=== PATIENT | male | born 1990 | race African-American/Black ===

== ENCOUNTER 2019-01-18 23:26 | Inpatient (IN) | payer OTHER ==
[2019-01-19 01:24] VITALS: BMI 22.5
[2019-01-19] MEDS ORDERED: Ondansetron PF 4 MG/2 ML Vial IVP PRN (02:17)
[2019-01-19] MEDS ORDERED: Ondansetron ODT 4 MG TAB SL PRN (02:17)
[2019-01-19] MEDS ORDERED: Acetaminophen 325 MG TAB PO PRN (02:17)
[2019-01-19] MEDS ORDERED: Lactated Ringer's 1,000 ML IV SCH (02:30)
[2019-01-19] MEDS ORDERED: Vancomycin HCl 1 GM in Premix Bag 1 BAG IVPB SCH (02:30)
[2019-01-19] MEDS: Piperacillin/Tazobactam 3.375 GM in Sodium Chloride 0.9% 100 ML IVPB SCH ×2 (02:52→09:22)
--- NOTE | 2019-01-19 11:00 | HP ---
HISTORY OF PRESENT ILLNESS: Mr. Maryellen Olivo is a 29-year-old male with multiple skin lesions, probably hidradenitis type problems. He has them over his chest, axilla, neck, arms, thighs. He has seen Dermatology in the past. He states he does have Medicaid. He had left axillary abscesses drained, Nu Gauze placed and has a dressing over his right upper back. He has mild drainage from his right axilla, chronic. He has drainage from other lesions over his chest, torso, thighs chronically. He has been admitted by the ER, concerned about sepsis. Since being in the hospital, his white count is normal. He has been afebrile. He has been on vancomycin and Zosyn. Plan at this time is to send him home on Cipro and Bactrim for 10 days, outpatient Wound Care. Follow up in my office in 2 weeks. I would suggest he see a station captain. He may need full future outpatient drainages, if in different areas. ALLERGIES: NONE. TOBACCO: None. ALCOHOL: None. MEDICATIONS: 1. Omeprazole 20 mg daily. 2. Myorisan 40 mg daily. 3. Prednisone 10 mg daily. PAST SURGICAL HISTORY: I and D of multiple abscesses. PAST MEDICAL HISTORY: 1. Bipolar disorder. 2. Hidradenitis, severe. 3. Multiple skin lesions and abscesses, recurrent. REVIEW OF SYSTEMS: Noncontributory. PHYSICAL EXAMINATION: VITAL SIGNS: Height 5 foot 11 inches, 161 pounds, 22 BMI, temperature 98.2, 83, 94/59. LUNGS: Clear to auscultation. CARDIAC: Rhythm without murmur or gallop. ABDOMEN: Soft and nontender. No mass. EXTREMITIES: Unremarkable. SKIN: Lesions as described, Nu gauze left axilla. Right upper back, multiple small draining sinuses, multiple small draining sinuses in his right axilla, torso, chest, abdomen, thighs. LABORATORY DATA: White count 24, hemoglobin 14.8. ASSESSMENT AND PLAN: 1. Multiple abscesses. 2. Outpatient wound care. 3. Antibiotics. 4. Dermatology appointment. 5. Consider appointment with Infectious Disease as an outpatient. 6. Follow up in my office in 2 to 3 weeks. Job ID: [id number]
[2019-01-19 12:29] VITALS: BP 104/71; TEMP 98.3
[2019-01-19] MEDS ORDERED: Doxycycline 100 MG CAP PO SCH (21:00)
[2019-01-19] MEDS ORDERED: Sulfameth/Trimethoprim DS 800-160mg TAB PO SCH (21:00)
--- NOTE | 2019-01-20 06:55 | DIS ---
DATE OF ADMISSION: 01/19/2019 DATE OF DISCHARGE: 01/19/2019 A 29-year-old male with hidradenitis suppurativa with chronic draining wounds over his right upper back, left axilla chest, abdomen, thighs. He has multiple I and Ds. He was seen in the ER last night and one drain in his left axilla. He has smaller sinuses elsewhere. The patient has been discharged home at this time with followup as an outpatient. He will arrange Dermatology, Infectious Disease followup as an outpatient. He will see me in 2 weeks. Outpatient wound care will be arranged. Job ID: [id number]
[2019-01-20] MEDS ORDERED: ISOTRETINOIN 40 MG PO SCH (09:00)
[2019-01-20] MEDS ORDERED: Potassium Chloride 20 MEQ TAB PO SCH (09:00)
[2019-01-20] MEDS ORDERED: predniSONE 5 MG TAB PO SCH (09:00)
== END 2019-01-19 15:00 | disposition home or self-care (01) | DRG 607 ==
LOC: ERS 23:26 → SURG A 01-19 01:12
PROVIDERS: ADMIT Specialist; ATTEND Specialist
DX: L73.2 Hidradenitis suppurativa (principal)
CPT/HCPCS: J2543; J3370; J7050

== ENCOUNTER 2019-03-01 23:17 | Inpatient (IN) | payer OTHER ==
[2019-03-02 00:49] LABS: Bilirubin Negative (Negative); Blood, Urine Negative (Negative); Clarity CLEAR (Clear); Glucose, Urine (Dipstick) Negative (Negative); Leukocyte Negative (Negative); Nitrite Negative (Negative); Protein, Urine (Dipstick) Negative (Neg-Trace); Urobilinogen 0.2 mg/dL (0.2-1.0)
[2019-03-02 00:58] LABS: Specific Gravity, Urine 1.062 (1.002-1.036)
[2019-03-02 03:39] VITALS: BMI 22.0
[2019-03-02 03:55] LABS: Troponin I Less than 0.010 ng/mL (< 0.028)
[2019-03-02] MEDS ORDERED: Ondansetron ODT 4 MG TAB PO PRN (04:54)
[2019-03-02] MEDS ORDERED: Acetaminophen 500 MG TAB PO PRN (04:54)
[2019-03-02] MEDS ORDERED: Ondansetron PF 4 MG/2 ML Vial IVP PRN (04:54)
[2019-03-02] MEDS ORDERED: Ibuprofen 200 MG TAB PO PRN (04:54)
[2019-03-02] MEDS: Sodium Chloride 0.9% 1,000 ML IV SCH ×2 (05:40→17:04)
[2019-03-02] MEDS: Vancomycin HCl 1.5 GM in Sodium Chloride 0.9% 250 ML 300 ML IVPB SCH ×2 (05:40→17:04)
[2019-03-02] MEDS ORDERED: Piperacillin/Tazobactam 4.5 GM in Sodium Chloride 0.9% 100 ML IVPB SCH (06:00)
--- NOTE | 2019-03-02 06:10 | HP ---
PRIMARY CARE PROVIDER: Larry Siu MD COMPLAINT: Chest pain and cough. HISTORY OF PRESENT ILLNESS: This is a 29-year-old male, who presented to the [facility] [facility] complaining of chest pain and cough while working outside. The patient initially complained of pain in his chest bilaterally occurring approximately 30 minutes prior to his evaluation in the emergency room. The patient did admit to an associated cough that was nonproductive, but no specific fever. Some nausea and palpitations were noted. The patient did not take any specific alleviating medications. The patient was recently admitted to [facility] for hidradenitis suppurativa with incision and drainage as well as IV antibiotic therapy. The patient states he has been compliant with his medication regimen and states no new medications. In the emergency room, the patient underwent general evaluation including CT angiogram of the chest showing equivocal findings without specific evidence of pulmonary embolus. However, the patient was not totally ruled out for pulmonary embolus and received Lovenox in the emergency room. The patient also underwent lower extremity venous Doppler evaluation showing no evidence for deep venous thrombosis. The patient received multitude of medications in the emergency room including Lovenox, aspirin 324 mg, vancomycin 1 g, Zofran, fentanyl, Zosyn, normal saline, and Toradol. The patient did meet criteria for sepsis including lactic acid elevation with tachycardia. Suspected source for skin infections due to history of multiple cutaneous abscesses. The patient was transferred for further evaluation. PAST MEDICAL HISTORY: 1. Hidradenitis suppurativa. 2. Bipolar disorder. PAST SURGICAL HISTORY: Status post incision and drainage of multiple skin abscesses. CURRENT MEDICATIONS: 1. Isotretinoin 10 mg p.o. daily. 2. Omeprazole 20 mg p.o. daily. ALLERGIES: NO KNOWN DRUG ALLERGIES. FAMILY HISTORY: No inheritable disease per patient report. SOCIAL HISTORY: No alcohol or smoking. History of marijuana use. REVIEW OF SYSTEMS: CONSTITUTIONAL: Negative for weight loss or gain, ability to conduct usual activities. SKIN: Negative for rash, itching. EYES: Negative for double vision, pain. ENT/MOUTH: Negative for nose bleeding, neck stiffness, pain, tenderness. CARDIOVASCULAR: Negative for palpitations, dyspnea on exertion, orthopnea. RESPIRATORY: Negative for shortness of breath, wheezing, cough, hemoptysis, fever or night sweats. GASTROINTESTINAL: Negative for poor appetite, abdominal pain, heartburn, nausea, vomiting, constipation, or diarrhea. GENITOURINARY: Negative for urgency, frequency, dysuria, nocturia. MUSCULOSKELETAL: Negative for pain, swelling. NEUROLOGIC/PSYCHIATRIC: Negative for anxiety, depression. ALLERGY/IMMUNOLOGIC: Negative for skin rash, bleeding tendency. Otherwise, negative except as stated per HPI. PHYSICAL EXAMINATION: VITAL SIGNS: On admission. Blood pressure 93/50, pulse 70, respiratory rate 18, temperature 97.4 degrees Fahrenheit, O2 saturation 99% on room air. GENERAL APPEARANCE: This is a 29-year-old male, alert and oriented x3, pleasant, conversant, in no acute distress. HEENT: Pupils are equal, round, reactive to light and accommodation. Extraocular muscles are intact. No scleral icterus. No conjunctival injection. Nares are patent. OP is clear. Teeth in fair repair. NECK: Supple. No cervical adenopathy. No thyromegaly. No carotid bruits. No JVD appreciated. Cervical spine with full active and passive range of motion. No meningeal signs noted. CHEST: Lungs are clear to auscultation bilaterally. CARDIOVASCULAR: S1-S2 without noted murmur, rub, or gallop. ABDOMEN: Rounded, soft, nontender, and nondistended. Bowel sounds are positive in all 4 quadrants. There is no hepatosplenomegaly. No abdominal bruits. No rebound or guarding appreciated. EXTREMITIES: Warm and dry with fair turgor. No clubbing, cyanosis, or asymmetric edema appreciated. Pulses are palpable distally at the dorsalis pedis, posterior tibial, and popliteal arteries bilaterally. Capillary refill is less than 2 seconds. NEUROLOGIC: Cranial nerves 2 through 12 are grossly intact. No focal or lateralizing signs appreciated. SKIN: Shows [id number] keloids to the face, trunk, neck, and back. Postsurgical changes noted in the axillary region. PERTINENT LAB AND X-RAY FINDINGS: EKG dated 03/01/2019, by my interpretation shows sinus tachycardia with heart rates in the 130s. Normal R-wave progression noted in the precordial leads. Normal axis. No acute ST-T wave changes appreciated. CT angiogram of the chest dated 03/01/2019, showed equivocal findings for pulmonary embolus. Bilateral lower extremity venous Doppler study dated 03/01/2019, showed no evidence for DVT. Portable chest x-ray dated 03/01/2019, showed no acute cardiopulmonary process. ASSESSMENT/PLAN: 1. Sepsis secondary to multiple skin abscesses. The patient will be admitted to the telemetry unit. Suspected source is skin lesions. We will continue vancomycin 1 g IV q.12 hours with additional Zosyn 4.5 g IV q.6 hours. Blood and urine cultures pending. Continue sepsis protocol and repeat lactic acid level. 2. Chest pain. Suspect secondary to #1 in addition to sinus tachycardia. No hard evidence to suggest acute pulmonary embolus. We will continue supportive management as outlined in #1. 3. Hidradenitis suppurativa. We will consult wound care services for evaluation. We will continue IV antibiotic therapy as outlined previously. Local skin care. 4. Hypokalemia. Mild. Continue potassium supplementation and repeat potassium level in the a.m. 5. Prophylaxis. SCDs while in bed. Pepcid 20 mg p.o. b.i.d. 6. Code status is full. Surrogate medical decision maker is patient's father. Job ID: [id number]
[2019-03-02 06:14] LABS: Troponin I Less than 0.010 ng/mL (< 0.028)
--- NOTE | 2019-03-02 07:31 | ULT ---
Bilateral lower extremity venous Doppler ultrasound evaluation history is PE and sepsis. Multiple longitudinal and transverse images of the right and left lower extremity venous systems are obtained using multi hertz linear array transducer. Real-time, color flow and spectral waveform Doppl er analysis demonstrates no evidence of acute or old clot seen in the right or left lower extremity v enous systems in the common femoral, superficial femoral, femoral profunda, popliteal, posterior tibi al veins and right and left greater saphenous veins. IMPRESSION: QA I concur with the dictation for virtual radiology.
[2019-03-02] MEDS: HYDROcodone/Acetaminophen 5/325 mg Tablet PO PRN ×2 (08:50→17:04)
[2019-03-02] MEDS: Famotidine 20 MG TAB PO SCH ×2 (08:52→19:55)
[2019-03-02] MEDS: Piperacillin/Tazobactam 4.5 GM in Sodium Chloride 0.9% 100 ML IVPB SCH ×3 (08:53→19:55)
[2019-03-02] MEDS ORDERED: Vancomycin HCl 1 GM in Sodium Chloride 0.9% 250 ML 300 ML IVPB SCH (09:00)
[2019-03-02] MEDS ORDERED: ISOTRETINOIN PO SCH (09:00)
[2019-03-03] MEDS: Sodium Chloride 0.9% 1,000 ML IV SCH ×2 (00:24→22:40)
[2019-03-03] MEDS: Piperacillin/Tazobactam 4.5 GM in Sodium Chloride 0.9% 100 ML IVPB SCH ×3 (02:02→22:41)
[2019-03-03] MEDS: HYDROcodone/Acetaminophen 5/325 mg Tablet PO PRN ×2 (02:05→17:35)
[2019-03-03] MEDS: Vancomycin HCl 1.5 GM in Sodium Chloride 0.9% 250 ML 300 ML IVPB SCH (05:00)
[2019-03-03 05:46] LABS: Anion Gap 9 mmol/L (10-20); BUN (Urea Nitrogen) 5 mg/dL (8.9-20.6); Calc. Creatinine Clearance 148 mL/min (70-130); Calcium 7.9 mg/dL (7.8-10.44); Carbon Dioxide 24 mmol/L (22-29); Chloride 107 mmol/L (98-107); Estimated GFR-MDRD Greater than 90; Glucose 82 mg/dL (70-105); Potassium 3.4 mmol/L (3.5-5.1); Sodium 137 mmol/L (136-145)
[2019-03-03 06:09] LABS: Band 8 % (5-11); Hemoglobin 11.6 g/dL (14.0-18.0); Lymphocytes 21 % (21-51); MDiff Complete? YES; Mean Corpuscular Hemoglobin 26.8 pg (27.0-31.0); Mean Corpuscular Volume 83.8 fL (78.0-98.0); Mean Platelet Volume 6.4 fL (7.4-10.4); Monocytes 9 % (0-10); Neutrophil 62 % (42-75); Platelet Count 354 thou/uL (130-400); RBC Distribution Width 14.8 % (11.5-14.5); Red Blood Cell (RBC) Count 4.32 mill/uL (4.70-6.10); White Blood Cell (WBC) Count 22.2 thou/uL (4.8-10.8)
--- NOTE | 2019-03-03 07:56 | PDOC.PN ---
- Subjective Encounter Start Date: 03/03/19 Encounter Start Time: 08:50 Subjective: Patient now with more diffuse body pain, less focused on chest. No cough -: today. No SOB. No fever. Hasn't gotten out of bed by his report. - Objective Resuscitation Status - Order Detail: 03/02/19 04:47 Resuscitation Status Routine Resuscitation Status: FULL: Full Resuscitation MAR Reviewed: Yes Vital Signs & Weight: Vital Signs (12 hours) Temp Pulse Resp BP Pulse Ox 03/03/19 03:29 98.9 F 74 16 95/54 L 95 03/02/19 20:00 98.1 F 88 16 111/65 97 Weight Admit Weight 158 lb Weight 158 lb I&O: 03/02/19 03/03/19 03/04/19 06:59 06:59 06:59 Intake Total 3224 Output Total 1950 Balance 1274 Result Diagrams: 03/03/19 04:38 03/03/19 04:38 Phys Exam - Physical Examination Constitutional: NAD HEENT: moist MMs Respiratory: no wheezing, no rales, no rhonchi, clear to auscultation bilateral Cardiovascular: RRR, no significant murmur Gastrointestinal: soft, positive bowel sounds diffuse TTP, no masses Musculoskeletal: no edema Neurological: non-focal, moves all 4 limbs Psychiatric: normal affect, A&O x 3 Deviation from normal: Hidradenitis covering bilateral adenexa and center of chest, no visible -: erythema or sig fluid collections Dx/Plan (1) Sepsis Code(s): A41.9 - SEPSIS, UNSPECIFIED ORGANISM Status: Acute Comment: WBC is chronically elevated, no fever, no more tachycardia, lactic acid normalized, suspect URI with dehydration when came in (2) Hidradenitis suppurativa Code(s): L73.2 - HIDRADENITIS SUPPURATIVA Status: Chronic Comment: diffuse, present since 12 years old, followed by specialist at [facility] in [place], no evidence for acute infection on exam of adenexa and chest (3) Chest pain Code(s): R07.9 - CHEST PAIN, UNSPECIFIED Status: Acute Comment: associated with cough, concern for possible PE with elevated D-dimer and tachycardia, CTA equivocal at [place] (4) Hypokalemia Code(s): E87.6 - HYPOKALEMIA Status: Acute Comment: improving, will continue oral supplementation - Plan cont current plan of care, continue antibiotics, out of bed/ambulate, DVT proph w/SCDs repeat CT chest to make sure no PE. If that neg and cultures come -: back neg tomorrow can switch to oral abx and d/c home. PT to get -: moving today. * . - Discharge Day Encounter end time: 10:00
[2019-03-03] MEDS ORDERED: Potassium Chloride 20 MEQ TAB PO SCH (08:00)
[2019-03-03] MEDS: Famotidine 20 MG TAB PO SCH ×2 (10:44→20:30)
--- NOTE | 2019-03-03 10:50 | CT ---
CT ANGIOGRAM OF THE CHEST: COMPARISON: 03/01/2019. CORRELATION: Bilateral lower extremity venous ultrasound with Doppler. HISTORY: Elevated D-dimer. Evaluate for pulmonary artery embolism. TECHNIQUE: CT angiogram of the chest is performed in the axial plane. Three-dimensional reformatted images are submitted for interpretation. FINDINGS: No mediastinal mass, lymphadenopathy, or hematoma. Heart size is within normal limits. No pericardi al effusion. The thoracic aorta and upper abdominal aorta have a normal caliber. No periaortic fat stranding. Visualized upper solid organs are unremarkable. There is evidence of collateral flow in the proximal left upper extremity and left axilla which is of uncertain significance. The etiology appears to be secondary to narrowing of the left subclavian ve in just deep to the medial aspect of the left clavicle. Trachea and central bronchi are patent. No masses or consolidation. Atelectasis and scar in the low er lobes. No pleural effusion or pneumothorax. No lytic or blastic lesions within the osseous structures. Adequate contrast opacification of the pulmonary arterial system to the level of the segmental arteri es. No filling defect to suggest thromboembolism.. IMPRESSION: 1. No evidence of pulmonary artery embolism to the level of the segmental arteries. 2. 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 The re is evidence of extensive left upper extremity and left axillary venous collateral flow. POS: OFF
[2019-03-03] MEDS ORDERED: ISOVUE-370 76%-LOCM 1 ML ONE (15:05)
[2019-03-04] MEDS: HYDROcodone/Acetaminophen 5/325 mg Tablet PO PRN (03:48)
[2019-03-04] MEDS: Famotidine 20 MG TAB PO SCH (08:56)
[2019-03-04 09:01] VITALS: BP 98/58; TEMP 99.5
[2019-03-04 09:33] LABS: #Eosinphils 0.2 thou/uL (0.0-0.7); #Lymphocytes 3.4 thou/uL (1.20-3.40); #Monocytes 1.3 thou/uL (0.11-0.59); #Neutrophils 20.5 thou/uL (1.40-6.50); %Eosinophils 0.8 % (0.0-10.0); %Lymphocytes 13.4 % (21.0-51.0); %Neutrophils 80.8 % (42.0-75.0); Hemoglobin 12.7 g/dL (14.0-18.0); Mean Corpuscular HGB CONC 31.7 g/dL (32.0-36.0); Mean Corpuscular Hemoglobin 26.7 pg (27.0-31.0); Mean Corpuscular Volume 84.3 fL (78.0-98.0); Platelet Count 358 thou/uL (130-400); RBC Distribution Width 14.8 % (11.5-14.5); Red Blood Cell (RBC) Count 4.75 mill/uL (4.70-6.10); White Blood Cell (WBC) Count 25.4 thou/uL (4.8-10.8)
[2019-03-04 09:51] LABS: Anion Gap 13 mmol/L (10-20); BUN (Urea Nitrogen) 4 mg/dL (8.9-20.6); Calc. Creatinine Clearance 154 mL/min (70-130); Calcium 8.5 mg/dL (7.8-10.44); Carbon Dioxide 24 mmol/L (22-29); Chloride 104 mmol/L (98-107); Estimated GFR-MDRD Greater than 90; Glucose 74 mg/dL (70-105); Potassium 3.7 mmol/L (3.5-5.1); Sodium 137 mmol/L (136-145)
--- NOTE | 2019-03-04 14:36 | EKG ---
Test Reason : Blood Pressure : / mmHG Vent. Rate : 072 BPM Atrial Rate : 072 BPM P-R Int : 134 ms QRS Dur : 088 ms QT Int : 396 ms P-R-T Axes : 064 008 010 degrees QTc Int : 433 ms Normal sinus rhythm with sinus arrhythmia Normal ECG Confirmed by KELSEY RUIZ ([id number]), editor school photograph ROMEO LANDA ([id number]) on 03/04/2019 2:35:54 PM Referred By: Confirmed By:KELSEY RUIZ
--- NOTE | 2019-03-05 06:35 | DIS ---
DATE OF ADMISSION: 03/02/2019 DATE OF DISCHARGE: 03/04/2019 PRIMARY CARE PHYSICIAN: Dr. Larry Siu. DISCHARGE DISPOSITION: Home. DISCHARGE DIAGNOSES: 1. Acute febrile illness, no etiology evident, resolved, likely viral illness. 2. Extensive hidradenitis suppurativa. 3. Chest pain, PE and ACS ruled out. DISCHARGE MEDICATIONS: Resume home medications. New medications, tramadol 50 mg daily. Home medications; 1. Omeprazole 20 mg daily. 2. Isotretinoin 10 mg daily. PROCEDURES DONE IN THE HOSPITAL: Lower extremity ultrasound, which is negative for any DVT bilaterally. CT angio of the thorax, which is negative for any pulmonary embolism. HISTORY OF PRESENTING ILLNESS: Mr. Olivo is a 29-year-old male with known history of extensive hidradenitis suppurativa with recent I and D by Dr. Chan in December 2018, who presented to the emergency room with complaints of chest pain and cough. In the ER, he had a CT angio with equivocal findings of pulmonary embolism. Lower extremity Doppler ultrasound done in the ER was negative for DVT. He was given 1 mg/kg dose of Lovenox, aspirin, antibiotic in the form of vancomycin and Zosyn, and was evaluated for further evaluation. He was found to have lactic acid elevation and was tachycardic, meeting the criteria for sepsis as per the HPI. He was found to have multiple skin lesions of hidradenitis suppurativa, some of them with purulent discharge. Please see admission history and physical dictated by Dr. Blair for further details dated 03/02/2019. HOSPITAL COURSE: CT angio was repeated and it was negative for PE. His cultures were obtained and they were negative. His fever and leukocytosis resolved, and he was back to his baseline. Antibiotics were continued, but the patient refused to take them anymore. He refused all oral or IV antibiotics. 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 I have discussed this at length with him, but I could not change his decision. He declined any prescription of oral antibiotics for discharge as well. As he is stable and eager to go home, he will be discharged. PHYSICAL EXAMINATION: He was seen and examined prior to discharge. VITAL SIGNS: Stable. Blood pressure 98/58, respirations 16, saturating 99% on room air, temperature 99.5. SKIN: Multiple scarring from hidradenitis suppurativa all over his body including the face. CHEST: Clear to auscultation bilaterally. HEART: Rate and rhythm regular. I did offer setting up him with wound care clinic at [facility], but he once again declined this as well and reports that his mother is able to take care of the wound. At this point, the patient is rather noncompliant with any medical advice, so he will be discharged. I have encouraged him to follow up with his passenger car cleaning supervisor in [place] as soon as possible. He states that his upcoming appointment is for February. Job ID: [id number]
== END 2019-03-04 14:39 | disposition home or self-care (01) | DRG 872 ==
LOC: ERS 23:17 → 2NO 03-02 00:22
PROVIDERS: ADMIT Family Medicine; ATTEND Family Medicine
PROC: B51D1ZZ Fluoroscopy of Bilateral Lower Extremity Veins using Low Osmolar Contrast (ICD-10-PCS; principal; 2019-03-02)
DX: A41.9 Sepsis, unspecified organism (principal); L73.2 Hidradenitis suppurativa; E87.6 Hypokalemia
CPT/HCPCS: 36415; 71275; 80048; 81003; 83605; 85007; 85025; 85027; 93005; 93970; J2543; J3370; J3490; J7050

== ENCOUNTER 2020-08-08 18:18 | Emergency (ER) | payer OTHER ==
[2020-08-08] MEDS ORDERED: Morphine 4 MG/ML VIAL ONE ×2 (19:14→22:18)
[2020-08-08] MEDS ORDERED: Cefepime 2 GM VIAL ONE (19:14)
[2020-08-08] MEDS ORDERED: Vancomycin 1 GM/200 ML BAG ONE (19:14)
[2020-08-08] MEDS ORDERED: Ketorolac Tromethamine 30 MG/ML VIAL ONE (19:14)
[2020-08-08 19:19] LABS: Hemoglobin 13.5 g/dL (14.0-18.0); Mean Corpuscular HGB CONC 31.6 g/dL (32.0-36.0); Mean Corpuscular Hemoglobin 26.7 pg (27.0-31.0); Mean Corpuscular Volume 84.3 fL (78.0-98.0); Mean Platelet Volume 6.6 fL (7.4-10.4); Platelet Count 403 thou/uL (130-400); RBC Distribution Width 14.7 % (11.5-14.5); Red Blood Cell (RBC) Count 5.08 mill/uL (4.70-6.10); White Blood Cell (WBC) Count 29.9 thou/uL (4.8-10.8)
[2020-08-08 19:38] LABS: Band 10 % (5-11); Lymphocytes 9 % (21-51); MDiff Complete? YES; Monocytes 1 % (0-10); Myelocyte 1 % (0-0); Neutrophil 78 % (42-75); Platelet Morphology Comment Appears Increased; RBC Morphology Normal
[2020-08-08] MEDS ORDERED: methylPREDNISolone Sod Succ/PF 125 MG/2 ML VIAL ONE (19:41)
[2020-08-08 19:46] LABS: ALT (SGPT) 15 U/L (8-55); AST (SGOT) 21 U/L (5-34); Albumin 3.2 g/dL (3.5-5.0); Alkaline Phosphatase 150 U/L (40-110); Anion Gap 16 mmol/L (10-20); BUN (Urea Nitrogen) 6 mg/dL (8.9-20.6); Bilirubin, Total 0.2 mg/dL (0.2-1.2); Calc. Creatinine Clearance 0 mL/min (70-130); Calcium 8.8 mg/dL (7.8-10.44); Carbon Dioxide 20 mmol/L (22-29); Chloride 103 mmol/L (98-107); Estimated GFR-MDRD Greater than 90; Globulin 5.6 g/dL (2.4-3.5); Glucose 139 mg/dL (70-105); Lipase 20 U/L (8-78); Magnesium 1.8 mg/dL (1.6-2.6); Potassium 4.5 mmol/L (3.5-5.1); Protein, Total 8.8 g/dL (6.0-8.3); Sodium 134 mmol/L (136-145)
[2020-08-08 20:41] LABS: Bacteria/HPF None Seen HPF (None Seen); Bilirubin Negative (Negative); Blood, Urine Negative (Negative); Clarity Clear (Clear); Glucose, Urine (Dipstick) Normal (Negative); Ketone, Urine Trace mg/dL (Negative); Leukocyte Negative Leu/uL (Negative); Nitrite Negative (Negative); Protein, Urine (Dipstick) 30 mg/dL (Neg-Trace); RBC/HPF 0-3 HPF (0-3); Specific Gravity, Urine 1.034 (1.002-1.036); Squamous Epithelial 0-3 HPF (0-3); Urobilinogen 6 mg/dL (Less than 2); pH, Urine 6.5 (5.0-9.0)
[2020-08-08 22:04] LABS: Lactic Acid 1.4 mmol/L (0.5-2.2)
--- NOTE | 2020-08-10 12:22 | EKG ---
Test Reason : SEPSIS Blood Pressure : / mmHG Vent. Rate : 100 BPM Atrial Rate : 100 BPM P-R Int : 122 ms QRS Dur : 082 ms QT Int : 354 ms P-R-T Axes : 066 022 037 degrees QTc Int : 456 ms Normal sinus rhythm Normal ECG Confirmed by MANJIT GARCIA ([id number]), medical transcription editor ROMEO LANDA ([id number]) on 08/10/2020 12:22:01 PM Referred By: Confirmed By:MANJIT GARCIA
== END 2020-08-08 23:44 | disposition short-term general hospital (02) ==
LOC: ERS 18:18
DX: A41.9 Sepsis, unspecified organism (principal); L73.2 Hidradenitis suppurativa; L03.314 Cellulitis of groin; F31.9 Bipolar disorder, unspecified; F90.9 Attention-deficit hyperactivity disorder, unspecified type
CPT/HCPCS: 36415; 80053; 81003; 81015; 83605; 83690; 83735; 85025; 87040; 87086; 93005; 96365; 96375; 96376; J0692; J1885; J2270; J2930; J3370

== ENCOUNTER 2020-09-30 19:08 | Inpatient (IN) | payer OTHER ==
[2020-09-30] MEDS ORDERED: Cefepime 2 GM VIAL ONE (20:29)
[2020-09-30 20:30] LABS: Hemoglobin 12.9 g/dL (14.0-18.0); Mean Corpuscular HGB CONC 32.8 g/dL (32.0-36.0); Mean Corpuscular Hemoglobin 27.9 pg (27.0-31.0); Mean Corpuscular Volume 85.1 fL (78.0-98.0); Mean Platelet Volume 6.6 fL (7.4-10.4); Platelet Count 373 thou/uL (130-400); RBC Distribution Width 14.7 % (11.5-14.5); Red Blood Cell (RBC) Count 4.62 mill/uL (4.70-6.10); White Blood Cell (WBC) Count 23.8 thou/uL (4.8-10.8)
[2020-09-30 20:53] LABS: Band 2 % (5-11); Eosinophils 1 % (0-10); Lymphocytes 19 % (21-51); MDiff Complete? YES; Monocytes 4 % (0-10); Neutrophil 73 % (42-75); Reactive Lymphocytes 1 % (0-10)
[2020-09-30 20:54] LABS: ALT (SGPT) 29 U/L (8-55); AST (SGOT) 29 U/L (5-34); Albumin 3.4 g/dL (3.5-5.0); Alkaline Phosphatase 154 U/L (40-110); Anion Gap 15 mmol/L (10-20); BUN (Urea Nitrogen) 8 mg/dL (8.9-20.6); Bilirubin, Total 0.2 mg/dL (0.2-1.2); CRP (Inflammatory) 16.14 mg/dL (= or < 0.5); Calc. Creatinine Clearance 0 mL/min (70-130); Calcium 8.9 mg/dL (7.8-10.44); Carbon Dioxide 26 mmol/L (22-29); Chloride 103 mmol/L (98-107); Globulin 5.1 g/dL (2.4-3.5); Glucose 93 mg/dL (70-105); Potassium 4.1 mmol/L (3.5-5.1); Protein, Total 8.5 g/dL (6.0-8.3); Sodium 140 mmol/L (136-145)
[2020-09-30] MEDS ORDERED: Morphine 4 MG/ML VIAL ONE (20:54)
--- NOTE | 2020-09-30 21:00 | RAD ---
CHEST ONE VIEW: History: Chest pain Comparison: None FINDINGS: There are two ovoid nodules projecting over the right and left lower hemithoraces which has the radio graphic appearance of buttons. These were not seen on the prior exam. There is also a right hilar rad iopacity also likely an extrinsic button as well as over the right upper lobe. No consolidation, pneu mothorax, or effusion. IMPRESSION: 1. No acute intrathoracic abnormality. 2. Likely extrinsic radiopacities projecting over the lower lobes and right upper lobe. POS: HOME
[2020-10-01 01:05] LABS: Bacteria/HPF None Seen HPF (None Seen); Bilirubin Negative (Negative); Blood, Urine Negative (Negative); Clarity Clear (Clear); Glucose, Urine (Dipstick) Normal (Negative); Ketone, Urine Negative (Negative); Leukocyte Negative Leu/uL (Negative); Nitrite Negative (Negative); Protein, Urine (Dipstick) 30 mg/dL (Neg-Trace); RBC/HPF 0-3 HPF (0-3); Specific Gravity, Urine 1.027 (1.002-1.036); Squamous Epithelial None Seen HPF (0-3); WBC/HPF 0-3 HPF (0-3); pH, Urine 7.5 (5.0-9.0)
[2020-10-01] MEDS: Lactated Ringer's 1,000 ML IV SCH ×2 (02:21→09:19)
[2020-10-01 02:51] VITALS: BMI 21.2
[2020-10-01] MEDS ORDERED: HYDROcodone/Acetaminophen 10/325 mg Tablet PO PRN ×2 (04:46→06:30)
[2020-10-01] MEDS ORDERED: Acetaminophen 500 MG TAB PO PRN (06:12)
[2020-10-01] MEDS ORDERED: Naproxen 500 MG TAB PO PRN (06:21)
--- NOTE | 2020-10-01 08:29 | HP ---
REASON FOR ADMISSION: Worsening of his hydradenitis suppurativa. HISTORY OF PRESENT ILLNESS: This is a 30-year-old male patient, who is known to have diffuse hydradenitis suppurativa. He has been feeling more swollen and more pain all over his body, and for that reason, he presented to the emergency room. He states that he has been experiencing worsening of his skin lesions for the past month, but over a week, they became more painful. He reported that he had near syncopal episodes multiple times last week when going from lying to standing. In the ER, his blood pressure was on the low side. He was given IV fluids. His blood pressure improved. His blood work did reveal increased white count. I did review his records and his last admission to the hospital was approximately 2 months ago with similar presentation. During his stay, he was noted to have multiple draining abscesses. He was started on IV vancomycin and Zosyn. He received IV fluids and his blood work did improve. PAST MEDICAL HISTORY: 1. Hidradenitis suppurativa. 2. Bipolar disorder. 3. GERD. PAST SURGICAL HISTORY: Multiple I and D of abscesses. SOCIAL HISTORY: Does not smoke. ALLERGIES: NO KNOWN DRUG ALLERGIES. FAMILY HISTORY: Noncontributory. REVIEW OF SYSTEMS: All systems reviewed except the above mentioned, found to be negative. PHYSICAL EXAMINATION: GENERAL: He is awake, alert, and oriented, does not appear in distress. VITAL SIGNS: His blood pressure is 101/63, his heart rate is 88, temperature is 98.9, and saturating 99% on room air. HEENT: Head is nontraumatic and normocephalic. Pupils are equal and reactive. Extraocular movements are intact. Nonicteric sclerae. Well injected conjunctivae. Oral mucosa normal. Nasal mucosa normal. NECK: Supple. No adenopathy. No murmur. Thyroid is palpable. Trachea is midline. No supraclavicular adenopathy. HEART: S1 and S2 regular. No murmur. No gallops. No friction rubs. No displacement of PMI. LUNGS: Clear to auscultation bilaterally. No wheezes or rhonchi. No crackles. ABDOMEN: Bowel sounds are positive. Nontender abdomen. No hepatosplenomegaly. EXTREMITIES: No lower extremity edema. No cyanosis. SKIN: Reveals diffuse areas of raised and painful subcutaneous tissue around the face, the chest, the armpits, and groin areas. NEUROLOGIC: Cranial nerves 2 through 12 within normal limits. Normal motor function. Normal sensory function. Normal reflexes. LABORATORY DATA: Blood work shows WBC of 29.9, hemoglobin 13.5, platelets of 403. Sodium 140, potassium 4.1, bicarb 26, BUN 8, creatinine 0.95, alkaline phosphatase 154. CRP 16.14. Urinalysis does not show any evidence for infection. ASSESSMENT AND PLAN: This is a 30-year-old male patient, who is presenting with exacerbation of his hidradenitis suppurativa. He responded well to IV fluids. He will be receiving cefepime, vancomycin, and we will ask Wound Care Team to see him. Also, I will consult Infectious Disease. For deep venous thrombosis prophylaxis, he will be on Lovenox and SCDs. He is on [place] for pain control. Job ID: [id number]
[2020-10-01] MEDS ORDERED: Prevnar 13-Val Conj/PF 0.5 ML SYRINGE IM ONE (09:00)
[2020-10-01] MEDS: Aripiprazole 15 MG TAB PO SCH (09:17)
[2020-10-01] MEDS: Vancomycin 1.5 GRAM/300 ML BAG 1.5 GM in Premix Bag 1 BAG IVPB SCH ×3 (09:17→23:45)
[2020-10-01] MEDS: Saccharomyces boulardii 250 MG CAP PO SCH (09:17)
[2020-10-01] MEDS: Cefepime 2 GM in Sodium Chloride 0.9% 100 ML IVPB SCH ×2 (09:18→21:32)
[2020-10-01] MEDS: Enoxaparin Sodium 40 MG/0.4 ML SYRINGE SC SCH (09:19)
[2020-10-01] MEDS: HYDROcodone/Acetaminophen 10/325 mg Tablet PO PRN ×2 (12:23→17:09)
[2020-10-01 14:27] LABS: SARS-CoV-2 MS2 Positive; SARS-CoV-2 N Gene Negative; SARS-CoV-2 S Gene Negative; SARS-CoV-2 by NAA Not Detected (NotDetected); SARS-CoV-2 orf1ab Negative
[2020-10-01 23:28] LABS: Vancomycin, Trough 22.1 ug/mL
[2020-10-02 07:05] LABS: #Basophils 0.1 thou/uL (0.0-0.2); #Eosinphils 0.3 thou/uL (0.0-0.7); #Lymphocytes 3.9 thou/uL (1.20-3.40); #Monocytes 1.3 thou/uL (0.11-0.59); #Neutrophils 20.1 thou/uL (1.40-6.50); %Basophils 0.2 % (0.0-1.0); %Eosinophils 1.1 % (0.0-10.0); %Lymphocytes 15.1 % (21.0-51.0); %Monocytes 5.2 % (0.0-10.0); %Neutrophils 78.4 % (42.0-75.0); Hemoglobin 12.9 g/dL (14.0-18.0); Mean Corpuscular HGB CONC 31.1 g/dL (32.0-36.0); Mean Corpuscular Hemoglobin 26.7 pg (27.0-31.0); Mean Platelet Volume 6.3 fL (7.4-10.4); Platelet Count 381 thou/uL (130-400); RBC Distribution Width 14.7 % (11.5-14.5); Red Blood Cell (RBC) Count 4.83 mill/uL (4.70-6.10); White Blood Cell (WBC) Count 25.7 thou/uL (4.8-10.8)
[2020-10-02 07:21] LABS: Anion Gap 13 mmol/L (10-20); BUN (Urea Nitrogen) 4 mg/dL (8.9-20.6); Calc. Creatinine Clearance 131 mL/min (70-130); Calcium 9.8 mg/dL (7.8-10.44); Carbon Dioxide 30 mmol/L (22-29); Chloride 101 mmol/L (98-107); Glucose 86 mg/dL (70-105); Potassium 5.1 mmol/L (3.5-5.1); Sodium 139 mmol/L (136-145)
[2020-10-02] MEDS: Vancomycin 1.5 GRAM/300 ML BAG 1.5 GM in Premix Bag 1 BAG IVPB SCH (07:41)
[2020-10-02] MEDS: HYDROcodone/Acetaminophen 10/325 mg Tablet PO PRN ×2 (08:54→23:44)
[2020-10-02] MEDS: Aripiprazole 15 MG TAB PO SCH (08:57)
[2020-10-02] MEDS: Saccharomyces boulardii 250 MG CAP PO SCH (08:57)
[2020-10-02] MEDS: Enoxaparin Sodium 40 MG/0.4 ML SYRINGE SC SCH (08:58)
[2020-10-02] MEDS: Cefepime 2 GM in Sodium Chloride 0.9% 100 ML IVPB SCH (08:59)
--- NOTE | 2020-10-02 15:19 | CON ---
DATE OF CONSULTATION: 10/02/2020 REASON FOR CONSULTATION: Exacerbation of hidradenitis suppurativa. HISTORY OF PRESENT ILLNESS: A 30-year-old who has longstanding history of hidradenitis suppurativa and a bipolar disorder and has been treated for many years with various interventions including antimicrobials, Accutane, low-dose corticosteroids, and TNF inhibitors. The patient tried Humira for 1 month and he seems to believe that it has caused him to become irritable and so he stopped taking it and he did notice some improvement in his back in the hospital after being on and off antimicrobials for the past year. He was admitted to [facility] here in town. Review at [facility], there was an admission in 05/2018 when he came in with exacerbation of hidradenitis and sepsis. He went I and D of abscesses in the abdomen, posterior back, and right axilla. He was given vancomycin and Zosyn. Dermatology evaluated the patient and felt that he would not benefit from Accutane and contraindicated corticosteroids. He was transitioned to oral clindamycin and rifampin and the next admission was in 03/2019 with the same history of exacerbation. He was given IV antimicrobial therapy and then transitioned to oral minocycline for some reason. It is stated that he was given a prescription of Accutane, although Dermatology in [place] recommended against that option for management. He was discharged on corticosteroids and antimicrobial therapy and Accutane. The last admission was recently on 08/27/2020, and again came with a diagnosis of severe hidradenitis suppurativa, acne conglobata and acne fulminans. He did have a punch biopsy. Specimen demonstrated dermal fibrosis with chronic inflammatory infiltrate. Numerous plasma cells are sort of nonspecific. Stain for infectious pathogens was negative. There is a note from 09/19 from a resident of Dermatology, probably from [facility] in [place]. The note was reviewed. Basically, diagnosis of acne conglobata/hidradenitis suppurativa with scarring, several inflamed nodules, but improved since antimicrobial treatment and recent course of prednisone. Discussions were entertained with the patient regarding treatment options including Humira, Accutane, and recommendation was in favor of Humira given his severe disease and the fact that the other options would not lead to a good outcome. He comes right back to [facility] and seems to be against the idea of starting Humira. He really never gave a good trial of Humira and he had only tried for a month and apparently had some altercation with his brother or other family members and he blames the Humira for it. He does have a diagnosis of schizophrenia/bipolar disorder and he may be making spurious associations between Humira and his behavioral psychological reactions, which might be more related to his underlying diagnosis than the TNF inhibitor. Currently, he is awake, appears in no distress except for the pain associated with the skin lesions. Denies any headaches. No visual symptoms, sore throat, odynophagia, dysphagia, or vomiting. No chest pain other than the skin associated pain. No abdominal pain. No genitourinary symptoms. Not a lot of activity in the groin area. Most of the activities in the upper chest and axilla and back. PAST MEDICAL HISTORY: 1. Hidradenitis suppurativa/acne conglobata with various multiple interventions in the past including antimicrobial therapy, low-dose corticosteroids, Accutane, and Humira. 2. History of hypertension. SOCIAL HISTORY: Lives in [place] by himself next to his family's home. Smokes 3 to 4 cigarettes per day. He is disabled. ALLERGIES: NONE. MEDICATION LIST: At the moment, he is on: 1. Abilify. 2. Cefepime. 3. Enoxaparin. 4. Naproxen. 5. Vancomycin. PHYSICAL EXAMINATION: VITAL SIGNS: T-max 99.1, blood pressure 108/68, pulse 86, respirations 18, and O2 saturation 99. SKIN: Widespread areas of scar tissue formation and keloid formation and then some other areas particularly in the upper chest associated with active nodular acne conglobata and areas of hidradenitis in the axilla, so most of the activity is localized to the upper chest area. HEENT: Ocular movements conjugate. Sclerae white. Oral cavity normal. Numerous teeth in place in fairly decent shape. NECK: Supple. LUNGS: Symmetric. Clear breath sounds. HEART: S1 and S2. Regular rate. No S3, S4, or murmurs. ABDOMEN: Soft, not distended or tender. No ascites. No bladder distention. EXTREMITIES: No joint inflammatory activity. Moves extremities equally with limitations imposed by skin lesions. NEUROLOGIC: Cognitive function appears to be intact. LABORATORY DATA: White cell count was 23,000, now is 25; hemoglobin 12.9; and platelets 381 with 78% neutrophils. Creatinine 0.82. Liver profile, alkaline phosphatase 154, albumin 3.4. CRP 16. Urinalysis was fairly unremarkable. A LAURA-CoV2 PCR not detected. There is a chest x-ray 2 days ago, which showed nothing abnormal. ASSESSMENT: 1. Hidradenitis suppurative/acne conglobata with various treatments in the past. 2. Exacerbation of the above with the recent admission to [facility] in [facility]. DISCUSSION: The commercial specialist recommended transition the patient to Humira in the outpatient setting after control of the acute inflammatory process with antimicrobials and other forms of tumor necrosis factor inhibition, such as infliximab or Remicade would be options for management as well. The patient seems to be pretty resistant to the idea of giving a good trial of Humira and so I would probably consider Remicade instead. The patient's perception of risk with the most effective treatment for his condition is hindering his improvement. I think that should be addressed 1st maybe with help from Psychiatry. For example, he states that if he takes Humira with Abilify, then he will have an increase in his irritability and lead to conflict in the family. So, in that regard, maybe changing to a different antipsychotic medication would be more helpful. I would certainly contraindicate giving him corticosteroids and Accutane. I think that is an inadequate choice he is making and we need to try to convince him to accept a fair TNF inhibitor trial. In the meantime, we will switch him to IV clindamycin and rifampin oral and then transition to oral clindamycin lower dose for discharge planning. Job ID: [id number] MTDD
--- NOTE | 2020-10-02 19:38 | PDOC.HOSPP ---
- Subjective Encounter Date: 10/02/20 Encounter Time: 10:15 Subjective: Patient seen and examined for exacerbation of hidradenitis suppurativa. No new complaints. Denies any nausea or abdominal discomfort. No new skin rash. - Objective Vital Signs & Weight: Vital Signs (12 hours) Temp Pulse Resp BP Pulse Ox 10/02/20 08:00 98.7 F 99 10/02/20 07:48 98.7 F 86 18 108/68 99 Weight Admit Weight 152 lb 3.008 oz Weight 152 lb 3 oz I&O: 10/01/20 10/02/20 10/03/20 06:59 06:59 06:59 Intake Total 7385 860 Output Total 3445 4132 6257 Balance -1343 -3933 -107 Result Diagrams: 10/02/20 06:12 10/02/20 06:12 Additional Labs: Abnormal Lab Results - Last 48 hrs 09/30/20 20:19: ESR Westergren Greater than 130 H 09/30/20 20:19: BUN 8 L, Alkaline Phosphatase 154 H, C-Reactive Protein 16.14 H, Serum Total Protein 8.5 H, Albumin 3.4 L, Globulin 5.1 H, Albumin/Globulin Ratio 0.7 L 09/30/20 20:19: WBC 23.8 H, RBC 4.62 L, Hgb 12.9 L, Hct 39.4 L, RDW 14.7 H, MPV 6.6 L, Band Neuts % (Manual) 2 L, Lymphocytes % (Manual) 19 L 10/01/20 00:46: Urine Protein 30 A, Urine Urobilinogen 2.0 A 10/02/20 06:12: Carbon Dioxide 30 H, BUN 4 L 10/02/20 06:12: WBC 25.7 H, Hgb 12.9 L, Hct 41.5 L, MCH 26.7 L, MCHC 31.1 L, RDW 14.7 H, MPV 6.3 L, Neutrophils % 78.4 H, Lymphocytes % 15.1 L, Neutrophils # 20.1 H, Lymphocytes # 3.9 H, Monocytes # 1.3 H Microbiology - Entire Visit 09/30/20 20:19 Venous blood - Left Arm Blood Culture - Preliminary NO GROWTH AT 48 HOURS 09/30/20 20:19 Venous blood - Right Arm Blood Culture - Preliminary NO GROWTH AT 48 HOURS Radiology Reviewed by me: Yes (Chest x-rayno infiltrates) Hospitalist ROS - Review of Systems Respiratory: denies: cough, dry, shortness of breath, hemoptysis, SOB with excertion, pleuritic pain, sputum, wheezing, other Cardiovascular: denies: chest pain, palpitations, orthopnea, paroxysmal noc. dyspnea, edema, light headedness, other Gastrointestinal: denies: nausea, vomiting, abdominal pain, diarrhea, constipation, melena, hematochezia, other - Medication Medications: Active Medications Generic Name Dose Route Start Last Admin Trade Name Freq PRN Reason Stop Dose Admin Hydrocodone Bitart/Acetaminophen 1 tab 10/01/20 10:41 10/02/20 08:54 Hydrocodone/Acetaminophen 10/325 Mg Tablet PO 1 tab Q4H PRN Administration Severe Pain (7-10) Aripiprazole 15 mg 10/01/20 09:00 10/02/20 08:57 Aripiprazole 15 Mg Tab PO 15 mg DAILY MELODY Administration Enoxaparin Sodium 40 mg 10/01/20 09:00 10/02/20 08:58 Enoxaparin Sodium 40 Mg/0.4 Ml Syringe SC 40 mg 0900 MELODY Administration Saccharomyces Boulardii 250 mg 10/01/20 09:00 10/02/20 08:57 Saccharomyces Boulardii 250 Mg Cap PO 250 mg DAILY MELODY Administration - Exam General Appearance: ill appearing Neck: supple, no JVD Heart: RRR, no gallops, no rubs, normal peripheral pulses Respiratory: no wheezes, no rales, no ronchi, normal chest expansion Gastrointestinal: soft, non-tender, non-distended, normal bowel sounds, no guarding Extremities: no cyanosis, no clubbing Skin: normal turgor Skin - other findings: Extensive skin lesions Neurological: no new deficit Musculoskeletal: generalized weakness Psychiatric: normal affect, A&O x 3 Hosp A/P - Plan DVT proph w/lovenox, DVT proph w/SCDs Exacerbation of hidradenitis suppurativa with sepsisPOA Hypertension Tobacco dependence Bipolar disorder GERD Plan: Infectious disease input appreciated. Antibiotics will be transitioned to clindamycin with rifampin. Vancomycin discontinued. Recheck labs in a.m. Continue Abilify. Continue other medications as above. Patient was advised to reschedule the appointment with his fastener technologist as soon as possible. Continue wound care.
[2020-10-02] MEDS: Clindamycin/D5W 600 MG in Premix Bag 1 BAG IVPB SCH ×2 (19:41→23:46)
[2020-10-02] MEDS: Rifampin 300 MG CAP PO SCH (23:44)
[2020-10-03] MEDS: Clindamycin/D5W 600 MG in Premix Bag 1 BAG IVPB SCH ×4 (05:18→23:08)
[2020-10-03 06:49] LABS: Hemoglobin 13.1 g/dL (14.0-18.0); Mean Corpuscular HGB CONC 31.6 g/dL (32.0-36.0); Mean Corpuscular Hemoglobin 27.1 pg (27.0-31.0); Mean Corpuscular Volume 85.9 fL (78.0-98.0); Mean Platelet Volume 6.3 fL (7.4-10.4); Platelet Count 395 thou/uL (130-400); RBC Distribution Width 14.7 % (11.5-14.5); Red Blood Cell (RBC) Count 4.81 mill/uL (4.70-6.10); White Blood Cell (WBC) Count 25.2 thou/uL (4.8-10.8)
[2020-10-03 07:08] LABS: Anion Gap 12 mmol/L (10-20); BUN (Urea Nitrogen) 6 mg/dL (8.9-20.6); Calc. Creatinine Clearance 133 mL/min (70-130); Calcium 9.5 mg/dL (7.8-10.44); Carbon Dioxide 31 mmol/L (22-29); Chloride 98 mmol/L (98-107); Glucose 78 mg/dL (70-105); Potassium 4.3 mmol/L (3.5-5.1); Sodium 137 mmol/L (136-145)
[2020-10-03 08:15] LABS: Band 4 % (5-11); Eosinophils 1 % (0-10); Lymphocytes 16 % (21-51); MDiff Complete? YES; Monocytes 4 % (0-10); Neutrophil 75 % (42-75); Platelet Morphology Comment Appears Adequate; Polychromasia SLIGHT = 2-3 cells (100X) (0-2/hpf)
[2020-10-03] MEDS: Aripiprazole 15 MG TAB PO SCH (09:42)
[2020-10-03] MEDS: Saccharomyces boulardii 250 MG CAP PO SCH (09:42)
[2020-10-03] MEDS: Enoxaparin Sodium 40 MG/0.4 ML SYRINGE SC SCH ×2 (09:42→09:47)
[2020-10-03] MEDS: Rifampin 300 MG CAP PO SCH ×2 (09:44→21:19)
[2020-10-03] MEDS: HYDROcodone/Acetaminophen 10/325 mg Tablet PO PRN ×3 (12:27→23:07)
--- NOTE | 2020-10-03 22:42 | PDOC.HOSPP ---
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 Denies any new complaints. No fever or chills. No diarrhea or nausea reported. - Objective Vital Signs & Weight: Vital Signs (12 hours) Temp Pulse Resp BP Pulse Ox 10/03/20 20:00 98.5 F 85 16 111/72 97 10/03/20 16:00 98.7 F 109 H 20 110/74 99 10/03/20 12:00 99.1 F 85 20 93/66 97 Weight Admit Weight 152 lb 3.008 oz Weight 152 lb 3 oz I&O: 10/02/20 10/03/20 10/04/20 06:59 06:59 06:59 Intake Total 2781 5126 2400 Output Total 8030 8892 700 Balance -2069 603 1880 Result Diagrams: 10/04/20 05:33 10/04/20 05:33 Hospitalist ROS - Review of Systems Respiratory: denies: cough, dry, shortness of breath, hemoptysis, SOB with excertion, pleuritic pain, sputum, wheezing, other Cardiovascular: denies: chest pain, palpitations, orthopnea, paroxysmal noc. dyspnea, edema, light headedness, other - Medication Medications: Active Medications Generic Name Dose Route Start Last Admin Trade Name Freq PRN Reason Stop Dose Admin Hydrocodone Bitart/Acetaminophen 1 tab 10/01/20 10:41 10/03/20 17:45 Hydrocodone/Acetaminophen 10/325 Mg Tablet PO 1 tab Q4H PRN Administration Severe Pain (7-10) Aripiprazole 15 mg 10/01/20 09:00 10/03/20 09:42 Aripiprazole 15 Mg Tab PO 15 mg DAILY MELODY Administration Enoxaparin Sodium 40 mg 10/01/20 09:00 10/03/20 09:47 Enoxaparin Sodium 40 Mg/0.4 Ml Syringe SC Not Given 09 MELODY Clindamycin Phosphate/Dextrose 50 mls @ 100 mls/hr 10/02/20 18:00 10/03/20 17:32 600 mg/ Device IVPB 50 mls Q6HR MELODY Administration Rifampin 300 mg 10/02/20 22:00 10/03/20 21:19 Rifampin 300 Mg Cap PO 300 mg 1000,2200 MELODY Administration Saccharomyces Boulardii 250 mg 10/01/20 09:00 10/03/20 09:42 Saccharomyces Boulardii 250 Mg Cap PO 250 mg DAILY MELODY Administration - Exam General Appearance: NAD Heart: RRR, no gallops Respiratory: no wheezes, no ronchi Gastrointestinal: soft, non-tender, normal bowel sounds Extremities: no cyanosis Skin: normal turgor Skin - other findings: Multiple skin lesions Musculoskeletal: generalized weakness Hosp A/P - Plan DVT proph w/SCDs Exacerbation of hidradenitis suppurativa with sepsis Hypertension Tobacco dependence Bipolar disorder GERD Plan: IContinue IV clindamycin with rifampin. Continue his home medications including Abilify. Continue wound care. Tobacco cessation was emphasized. Patient will contact the dermatology clinic at [place] for appointment next week. Continue probiotics. Continue other medications as above. Patient was advised to ambulate
[2020-10-04] MEDS: Clindamycin/D5W 600 MG in Premix Bag 1 BAG IVPB SCH (05:25)
[2020-10-04] MEDS: HYDROcodone/Acetaminophen 10/325 mg Tablet PO PRN (05:30)
[2020-10-04 06:17] LABS: Anion Gap 14 mmol/L (10-20); BUN (Urea Nitrogen) 6 mg/dL (8.9-20.6); Calc. Creatinine Clearance 126 mL/min (70-130); Calcium 9.3 mg/dL (7.8-10.44); Carbon Dioxide 28 mmol/L (22-29); Chloride 100 mmol/L (98-107); Glucose 101 mg/dL (70-105); Potassium 5.1 mmol/L (3.5-5.1); Sodium 137 mmol/L (136-145)
[2020-10-04 06:22] LABS: Eosinophils 1 % (0-10); Hemoglobin 12.7 g/dL (14.0-18.0); Lymphocytes 22 % (21-51); MDiff Complete? YES; Mean Corpuscular HGB CONC 32.5 g/dL (32.0-36.0); Mean Corpuscular Hemoglobin 27.4 pg (27.0-31.0); Mean Corpuscular Volume 84.2 fL (78.0-98.0); Mean Platelet Volume 6.2 fL (7.4-10.4); Neutrophil 77 % (42-75); Platelet Count 414 thou/uL (130-400); Platelet Morphology Comment Appears Increased; RBC Distribution Width 14.4 % (11.5-14.5); Red Blood Cell (RBC) Count 4.65 mill/uL (4.70-6.10); White Blood Cell (WBC) Count 24.1 thou/uL (4.8-10.8)
[2020-10-04] MEDS: Saccharomyces boulardii 250 MG CAP PO SCH (08:34)
[2020-10-04] MEDS: Enoxaparin Sodium 40 MG/0.4 ML SYRINGE SC SCH (08:34)
[2020-10-04] MEDS: Aripiprazole 15 MG TAB PO SCH (08:35)
[2020-10-04] MEDS: Rifampin 300 MG CAP PO SCH (08:35)
[2020-10-04 11:47] VITALS: BP 128/85; TEMP 99
--- NOTE | 2020-10-04 18:38 | PDOC.DS.DS ---
Provider - Provider Date of Admission: 09/30/20 23:25 Date of Discharge: 10/04/20 Admitting Provider: Gerald Lopez MD Consultations: Infectious Disease Primary Care Physician: Larry Siu MD Course - Hospital Course Hospital Course: Patient is a 30-year-old male with hidradenitis suppurativa of the followed at [facility] in [place] presented to the hospital with worsening of his skin lesion. He was started on vancomycin and Zosyn that was changed to IV clindamycin and rifampin by infectious disease. He has a follow-up with [facility] dermatology next week for possible initiation of Humira. He has quantified on testing on 10/07. The infectious disease recommended 2-month course of clindamycin and Flagyl. Plan of care was discussed with patient's mother who will coordinate the follow-up at [facility]. Final diagnosis: Exacerbation of hidradenitis suppurativa with sepsis Hypertension Tobacco dependence Bipolar disorder GERD Time coordinating the discharge of this patient was 36 minutes. Resuscitation Status: 10/01/20 06:13 Resuscitation Status Routine Resuscitation Status: FULL: Full Resuscitation - Labs Lab Results: 10/04/20 05:33 10/04/20 05:33 Abnormal Lab Results - Last 48 hrs 10/03/20 05:54: Carbon Dioxide 31 H, BUN 6 L 10/03/20 05:54: WBC 25.2 H, Hgb 13.1 L, Hct 41.3 L, MCHC 31.6 L, RDW 14.7 H, MPV 6.3 L, Band Neuts % (Manual) 4 L, Lymphocytes % (Manual) 16 L 10/04/20 05:33: BUN 6 L 10/04/20 05:33: WBC 24.1 H, RBC 4.65 L, Hgb 12.7 L, Hct 39.2 L, Plt Count 414 H, MPV 6.2 L, Neutrophils % (Manual) 77 H, Plt Morphology Comment Appears Increased H Microbiology - Entire Visit 09/30/20 20:19 Venous blood - Left Arm Blood Culture - Preliminary NO GROWTH AT 48 HOURS 09/30/20 20:19 Venous blood - Right Arm Blood Culture - Preliminary NO GROWTH AT 48 HOURS - Physical Exam Vitals: Vital Signs (12 hours) Temp Pulse Resp BP Pulse Ox 10/04/20 11:46 99 F 115 H 20 128/85 98 11/13/20 08:30 99 10/04/20 07:44 98.1 F 71 20 95/58 L 99 Weight Admit Weight 152 lb 3.008 oz Weight 152 lb 3 oz Physical Exam: The patient was seen and examined on the day of discharge. Plan - Discharge Medications Prescriptions: Clindamycin HCl 300 mg PO Q6HR #240 capsule metroNIDAZOLE [Flagyl] 250 mg PO Q8HR #180 tab Saccharomyces boulardii [Florastor] 250 mg PO DAILY #30 cap Home Medications: Medication Instructions Recorded Confirmed Type Acetaminophen [Tylenol Extra 1,000 mg PO Q6HR PRN 10/01/20 10/01/20 History Strength] Aripiprazole [Abilify] 15 mg PO DAILY 10/01/20 10/01/20 History HYDROcodone/Acetaminophen [[place] 1 tab PO Q6HR PRN 10/01/20 10/01/20 History 10-325 Tablet] Naproxen Sodium [Aleve] 220 mg PO HS PRN 10/01/20 10/01/20 History Clindamycin HCl 300 mg PO Q6HR #240 capsule 10/04/20 Rx Saccharomyces boulardii [Florastor] 250 mg PO DAILY #30 cap 10/04/20 Rx metroNIDAZOLE [Flagyl] 250 mg PO Q8HR #180 tab 10/04/20 Rx Allergies: No Known Allergies Allergy (Verified 10/01/20 01:54) vertified by patient - Discharge Instructions Discharge Instructions:: Follow up with Dermatology in 1 week YOUR PRESCRIPTIONS WERE SENT TO: [place] [address] [place] [address] [place], [place] [address] - Follow up Plan Referrals: Harjinder Alejandre MD [Active] - 7 Days Larry Siu MD [Primary Care Provider] - 7 Days Disposition: HOME Quality - Care Measures CORE MEASURES:: N/A
--- NOTE | 2020-10-08 08:03 | PQF ---
CLINICAL DOCUMENTATION CLARIFICATION FORM: Dear : Neo Martinez Date / Time: 10/08/2020 0802 Please exercise your independent, professional judgment in responding to the clarification form. Clinical indicators are provided on the bottom of this form for your review Please check appropriate box(es): [ ] Protein Calorie Malnutrition: [ ] Mild [ x ] Moderate [ ] Severe [ ] Other Malnutrition (please specify) [ ] Underweight without malnutrition [ ] Cachexia [ ] Other diagnosis [ ] Unable to determine In addition, please specify: Present on Admission (POA): [ x ] Yes [ ] No [ ] Unable to determine Physician Signature: Date/Time: For continuity of documentation, please document condition throughout progress notes and discharge summary. Thank You To be completed by CDI/Coding staff for physician review: Present Clinical Indicators - Signs / Symptoms / Labs Results and Location in Medical Record [X] BP 104/67, Pulse 89, Resp 20, Temp 98.9 Vital signs 10/01 [X] BMI of 21.2 Nutritional assessment Dietitian [facility] 10/01 [X] Poor appetite Nutritional assessment Dietitian [facility] 10/01 [X] Weight loss Nutritional assessment Dietitian [facility] 10/01 [X] Serum Total protein 8.5, Albumin 3., Globulin 5.1, Ratio 0.7 Laboratory 10/01 Present Risk Factors Results and Location in Medical Record [X] GERD H&P p1 09/30 Dr Lopez [X] Bipolar Disorder H&P p1 09/30 Dr Lopez [X] Smoker ED Notes 09/30 Present Treatments Results and Location in Medical Record [X] Dietary consult Nutritional assessment Dietitian [facility] 10/01 [X] Nutritional supplements Nutritional assessment Dietitian [facility] 10/01 [X] Weight monitoring Nutritional assessment Dietitian [facility] 10/01 [X] Oral intake monitoring Nutritional assessment Dietitian [facility] 10/01 [X] Appetite stimulant - medication Nutritional assessment Dietitian [facility] 10/01 CDS/Port Cdl A Driver Signature: Maria A Henry Phone #: ext [phone] Date/Time: 10/08/2020 0802 Moderate Malnutrition (in acute illness) ? Energy Intake: <75% of estimated energy requirement for > 7 days ? Weight Loss: 1-2%/1 week; 5%/ 1 month; 7.5%/3 months ? Other: mild body fat loss; mild muscle mass loss; mild fluid accumulation; Severe Malnutrition (in acute illness) ? Energy Intake: ? 50% of estimated energy requirement for ? 5 days ? Weight Loss: >2%/1 week; >5%/1 month; >7.5%/3 months ? Other: moderate body fat loss; moderate muscle mass loss; moderate- severe fluid accumulation; measurably reduced business architect strength Moderate Malnutrition (in chronic illness) ? Energy Intake: <75% of estimated energy requirement for ?1 month ? Weight Loss: 5%/1 month; 7.5%/3 months; 10%/6 months; 20%/1 year ? Other: mild body fat loss; mild muscle mass loss; mild fluid accumulation Severe Malnutrition (in chronic illness) ? Energy Intake: ?75% of estimated energy requirement for ?1 month ? Weight Loss: >5%/1 month; >7.5%/3 months; >10%/6 months; >20%/1 year ? Other: severe body fat loss; severe muscle mass loss; severe fluid accumulation; measurably reduced business architect strength This is a permanent part of the Medical Record [facility]
--- NOTE | 2020-10-12 16:32 | EKG ---
Test Reason : Blood Pressure : / mmHG Vent. Rate : 083 BPM Atrial Rate : 083 BPM P-R Int : 128 ms QRS Dur : 084 ms QT Int : 370 ms P-R-T Axes : 065 023 033 degrees QTc Int : 434 ms Normal sinus rhythm Normal ECG Confirmed by SADIA HESS DO ([id number]), film or videotape editor ROMEO LANDA ([id number]) on 10/12/2020 4:31:55 PM Referred By: Confirmed By:SADIA HESS DO
== END 2020-10-04 11:52 | disposition home or self-care (01) | DRG 872 ==
LOC: ERS 19:08 → T4-B 23:25
PROVIDERS: ADMIT Internal Medicine; ATTEND Internal Medicine
DX: A41.9 Sepsis, unspecified organism (principal); E44.0 Moderate protein-calorie malnutrition; L73.2 Hidradenitis suppurativa; I10 Essential (primary) hypertension; F31.9 Bipolar disorder, unspecified; K21.9 Gastro-esophageal reflux disease without esophagitis; Z20.828 Contact with and (suspected) exposure to other viral communicable diseases; F20.9 Schizophrenia, unspecified; F90.9 Attention-deficit hyperactivity disorder, unspecified type; F17.210 Nicotine dependence, cigarettes, uncomplicated; Z79.899 Other long term (current) drug therapy; Z28.21 Immunization not carried out because of patient refusal; Z68.21 Body mass index [BMI] 21.0-21.9, adult
CPT/HCPCS: 36415; 71045; 80048; 80053; 80202; 81003; 81015; 83605; 84484; 85025; 85652; 86140; 87040; 87635; 93005; 96365; 96366; 96375; J0692; J1650; J2270; J3370; J3490; J7030; U0003

== ENCOUNTER 2020-10-25 21:28 | Inpatient (IN) | payer OTHER ==
[2020-10-26 03:25] VITALS: BMI 21.3
[2020-10-26] MEDS: Piperacillin/Tazobactam 4.5 GM in Sodium Chloride 0.9% 100 ML IVPB SCH ×2 (03:56→08:20)
[2020-10-26] MEDS: Morphine 4 MG/ML VIAL SLOW IVP PRN ×3 (03:56→19:28)
[2020-10-26] MEDS ORDERED: Vancomycin HCl 1.25 GM in Sodium Chloride 0.9% 250 ML 250 ML IVPB SCH (04:00)
[2020-10-26 06:42] LABS: SARS-CoV-2 MS2 Positive; SARS-CoV-2 N Gene Negative; SARS-CoV-2 S Gene Negative; SARS-CoV-2 by NAA Not Detected (NotDetected); SARS-CoV-2 orf1ab Negative
[2020-10-26] MEDS: Aripiprazole 15 MG TAB PO SCH (08:19)
[2020-10-26] MEDS ORDERED: FLU VACC QS2020-21(6MOS UP)/PF 60 MCG/0.5 ML SYRINGE IM ONE (09:00)
[2020-10-26] MEDS ORDERED: Vancomycin HCl 1.5 GM in Sodium Chloride 0.9% 250 ML 300 ML IVPB SCH (09:00)
[2020-10-26] MEDS ORDERED: Doxycycline 100 MG CAP PO SCH (09:00)
--- NOTE | 2020-10-26 10:22 | PDOC.HHP ---
Hospitalist HPI - History of Present Illness worsening hidradenitis lesions History of Present Illness: This is a 30 year old male with history of lifelong hidradenitis suppurative who presented with worsening skin lesions for the past month. He typically has lesions on his armpits, chest, abdomen and groin however the lesions on his chest and abdomen have been worsening over the past month. THe patient is following with a executive legal secretary in [place]. He finished a course of steroids a few months ago and recently finished clindamycin or doxycycline ( patient doesn't recall which one) two months ago. He states the antibiotics prevented new lesions from forming but did not help with the pre-existing lesions. He was also on humira previously but discontinued this due to LIME [employer]MER side effects. Currently, he reports a throbbing and pounding chest pain for the past three months that is relieved by NSAIDS and worsened by any kind of movement . He denies drainage from his chest lesions but has had increasing drainage from a new abdominal lesion and also from his bilateral groin area. He has no fevers, chills, cough or significant sore throat. He has bilateral shoulder pain due to lesions in his armpits that make it difficult to lift up his arms. He has been having significant drainage from his bilateral axilla, but this is chronic and the only thing that really helped with that was accutane. He took accutane for approximately 5-6 months and stopped a year ago. ED Course: The patient presented to the ER with normal vitals. Labs showed a WBC of 22. He was given IV vancomycin, zosyn, and flagyl. Hospitalist ROS - Review of Systems Constitutional: reports: other (decreased appetite). denies: fever, chills Eyes: denies: pain, vision change ENT: reports: throat pain (left lower part of throat) Cardiovascular: reports: chest pain (worst with movement) Gastrointestinal: denies: nausea, vomiting, abdominal pain, diarrhea, constipation Genitourinary: denies: dysuria, frequency Musculoskeletal: reports: shoulder pain (bilateral) Skin: reports: lesions (multiple HS lesions) Neurological: denies: weakness, numbness - Medication Medications: Active Medications Generic Name Dose Route Start Last Admin Trade Name Freq PRN Reason Stop Dose Admin Aripiprazole 15 mg 10/26/20 09:00 10/26/20 08:19 Aripiprazole 15 Mg Tab PO 15 mg DAILY MELODY Administration Morphine Sulfate 4 mg 10/26/20 01:20 10/26/20 03:56 Morphine 4 Mg/Ml Vial SLOW IVP 4 mg Q4H PRN Administration Pain Hospitalist History - Past Medical History Psych: reports: Bipolar, Schizophrenia, Other (ADD) - Past Surgical History Other Surgical History: INcision and drainage of multiploe abscesses - Family History Other Family History: Mother has hidradenitis Four siblings have hidradenitis as well Patient has 29 siblings, 10 are full siblings - Social History Smoking Status: Current some day smoker (smokes 3 cigarettes occasionally when his disease flares up) Alcohol: reports: None Drugs: reports: none Living Situation: With Family (lives with mother and brother) - Exam General Appearance: NAD, awake alert Eye: PERRL, anicteric sclera Neck: supple, no JVD Heart: RRR, normal peripheral pulses Respiratory: CTAB, no wheezes, normal chest expansion Gastrointestinal: soft, non-tender, non-distended, normal bowel sounds, no palpable masses Extremities: no cyanosis, no clubbing, no edema Extremities - other findings: significant drainage from bilateral axilla, groin Skin - other findings: dried skin lesions on chest, purulent skin lesions on umbilical area Neurological: cranial nerve grossly intact, normal sensation to touch, no focal deficits, no new deficit Musculoskeletal: normal tone, normal strength, no muscle wasting Psychiatric: normal affect, normal behavior, A&O x 3 Hospitalist Results - Labs Result Diagrams: 10/26/20 10:30 10/26/20 10:30 Hospitalist H&P A/P - Plan Plan: This is a 30 year old male with history of hidradenitis suppurativa who presents with worsening HS lesions Hidradenitis suppurativa exacerbation - received vanc, cefepime/flagyl in ER and started on vancomycin and zosyn here - will start doxycycline 100 mg bid. Check wound cultures. Surgical consult for drainage of axilla/groin/abdomen possibly? - check hemoglobin A1C. Will trial adding metformin since this benefits some patients - needs to f/u with his executive legal secretary Chest pain - likely secondary to inflammation/infection from lesions vs GERD - will obtain CT chest - defer EKG for now due to extensive skin infection. Will check troponins - add protonix Bilateral groin pain Possible abdominal abscess - check CT abdomen/pelvis. Has purulent drainage of abdominal lesion and bilateral open wounds on groin with drainage - will evaluate for sinus tracts/fistulas. Wound care consult. Check wound culture Leukocytosis- due to worsening HS - WBC of 22, reeived vanc and zosyn. Will repeat CBC - check wound culture Tobacco abuse - counseled on cessation Schizohprenia/Bipolar - continue abilify
[2020-10-26] MEDS ORDERED: metFORMIN 500 MG TAB PO SCH ×2 (10:23→11:00)
[2020-10-26 10:41] LABS: Hemoglobin 11.5 g/dL (14.0-18.0); Mean Corpuscular HGB CONC 32.1 g/dL (32.0-36.0); Mean Corpuscular Hemoglobin 26.5 pg (27.0-31.0); Mean Corpuscular Volume 82.7 fL (78.0-98.0); Mean Platelet Volume 6.1 fL (7.4-10.4); Platelet Count 424 thou/uL (130-400); RBC Distribution Width 14.4 % (11.5-14.5); Red Blood Cell (RBC) Count 4.32 mill/uL (4.70-6.10); White Blood Cell (WBC) Count 26.9 thou/uL (4.8-10.8)
[2020-10-26 10:49] LABS: Hemoglobin A1c 5.3 % (4.0-6.0)
[2020-10-26 11:02] LABS: ALT (SGPT) 11 U/L (8-55); AST (SGOT) 20 U/L (5-34); Albumin 2.7 g/dL (3.5-5.0); Alkaline Phosphatase 133 U/L (40-110); Anion Gap 13 mmol/L (10-20); BUN (Urea Nitrogen) 6 mg/dL (8.9-20.6); Bilirubin, Total 0.3 mg/dL (0.2-1.2); Calc. Creatinine Clearance 124 mL/min (70-130); Calcium 8.7 mg/dL (7.8-10.44); Carbon Dioxide 26 mmol/L (22-29); Chloride 104 mmol/L (98-107); Globulin 5.5 g/dL (2.4-3.5); Glucose 116 mg/dL (70-105); Potassium 4.3 mmol/L (3.5-5.1); Protein, Total 8.2 g/dL (6.0-8.3); Sodium 139 mmol/L (136-145)
--- NOTE | 2020-10-26 13:51 | CT ---
Exam: Chest abdomen and pelvic CT scan with IV contrast: HISTORY: Groin pain, sinus tract, abscess, sores over the patient's body and skin issues for years COMPARISON: 10/26/2018 FINDINGS: Minimal pleural thickening and pleural-based parenchymal changes in the posterior lower lung zones, p ossibly mild subsegmental atelectasis. No evidence for acute pulmonary parenchymal process. No mediastinal mass or adenopathy. No acute pulmonary parenchymal process. Liver, gallbladder, pancreas, spleen, adrenal glands are unremarkable. No renal calculus or acute obstruction. No evidence for free intraperitoneal fluid or retroperitoneal hematoma. There is some diffuse somewhat nodular skin thickening involving the lower abdomen particularly centr ally as well as the perineum and inner thighs and overlying the upper buttocks region. This measures up to approximately 1.9 cm in thickness. There also appears to be some thickening of the scr otal sac. These thickening changes have progressed somewhat when compared to the prior exam. No evidence for an abscess. No evidence for deep extension. IMPRESSION: Very extensive skin thickening as above which shows some progression from prior study. No evidence fo r abnormal fluid collection.
[2020-10-26] MEDS ORDERED: Iopamidol-370 76% 500 ML 1 ML ONE (14:24)
[2020-10-26] MEDS: metFORMIN 500 MG TAB PO SCH (16:22)
--- NOTE | 2020-10-26 20:27 | PDOC.EVN ---
Event Note - Event Note Event Note: Spoke to correctional cook rubber extrusion machine operator Dr Gilbert at [facility]. Patient was previously on clinda and rifampin last August and recommending restarting He also recommended hibiclens wash, benzyl peroxide wash bid after bath and topical clindamycin They will call Wednesday for an appointment, patient missed his last appointment
[2020-10-26] MEDS ORDERED: Ondansetron PF 4 MG/2 ML Vial IVP SCH (20:30)
[2020-10-26] MEDS: Rifampin 300 MG CAP PO SCH (21:17)
[2020-10-26] MEDS: Clindamycin 150 MG CAP PO SCH (21:17)
[2020-10-27] MEDS: Morphine 4 MG/ML VIAL SLOW IVP PRN ×4 (00:06→16:41)
--- NOTE | 2020-10-27 05:14 | CON ---
DATE OF CONSULTATION: 10/26/2020 CHIEF COMPLAINT: Extensive hidradenitis. HISTORY OF PRESENT ILLNESS: The patient is a 30-year-old male who has severe hidradenitis suppurativa since age 15. It affects his villegas, his neck, his gluteus, his chest, axillae, back, and arms. He has had several visits to [facility] in [place], as well as in [place]. He has seen Dermatology at [place]. He has seen Dr. Alejandre in Infectious Disease. He was started on Humira, but it made him have some psychological issues, so he stopped it. Humira did help a little bit. He did seem to respond in the past to antibiotics. He says that just since he has been admitted on the antibiotics, he is feeling better and the pus is draining from his wounds. 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 He has not had any surgery for this. SOCIAL HISTORY: He lives in [place] by himself near his family. Smokes 3 to 4 cigarettes a day. He is considered disabled. ALLERGIES: NO KNOWN DRUG ALLERGIES. MEDICATIONS: Include: 1. Abilify. 2. Cefepime. 3. Enoxaparin. 4. Naproxen. 5. Vancomycin. PHYSICAL EXAMINATION: VITAL SIGNS: Temperature is 98.2, pulse 91, blood pressure is 104/68. GENERAL: He is awake, alert. He looks like he has leprosy, poor katherine. SKIN: He has so many sores all over his body. His villegas is inflamed. His neck is inflamed. His chest is inflamed and weeping purulent fluid. Both axillae are inflamed and weeping purulent fluid. Groins, terrible. The sheets stick. His back and flanks are all inflamed. ASSESSMENT: Very extensive hidradenitis that would require total skinectomy. I cannot do anything surgically to help this man. He needs to be hospitalized, antibiotics, Dermatology consultation, Infectious Disease consultation, and eventually Plastic Surgery consultation. There is nothing I can do on the short term to help this man. Job ID: [id number]
[2020-10-27 05:26] LABS: Hemoglobin 11.6 g/dL (14.0-18.0); Mean Corpuscular Hemoglobin 26.7 pg (27.0-31.0); Mean Corpuscular Volume 83.4 fL (78.0-98.0); Mean Platelet Volume 6.8 fL (7.4-10.4); Platelet Count 455 thou/uL (130-400); RBC Distribution Width 14.5 % (11.5-14.5); Red Blood Cell (RBC) Count 4.36 mill/uL (4.70-6.10)
[2020-10-27 05:55] LABS: ALT (SGPT) 12 U/L (8-55); AST (SGOT) 15 U/L (5-34); Albumin 2.8 g/dL (3.5-5.0); Alkaline Phosphatase 140 U/L (40-110); Bilirubin, Direct 0.3 mg/dL (0.1-0.3); Bilirubin, Total 0.5 mg/dL (0.2-1.2); Protein, Total 8.6 g/dL (6.0-8.3)
[2020-10-27] MEDS: Aripiprazole 15 MG TAB PO SCH (08:58)
[2020-10-27] MEDS: Rifampin 300 MG CAP PO SCH ×2 (08:58→21:05)
[2020-10-27] MEDS: Clindamycin 150 MG CAP PO SCH ×2 (08:58→21:05)
[2020-10-27] MEDS: metFORMIN 500 MG TAB PO SCH ×2 (08:58→16:46)
[2020-10-27] MEDS: Ketorolac Tromethamine 10 MG TAB PO SCH ×3 (10:03→21:05)
[2020-10-27] MEDS ORDERED: Ondansetron PF 4 MG/2 ML Vial IVP PRN (14:23)
--- NOTE | 2020-10-27 16:49 | PDOC.HOSPP ---
- Subjective Encounter Date: 10/27/20 Encounter Time: 07:00 Subjective: 'F/u: hidradenitis lesions The patient states he feels slightly better compared to yesterday. His wounds have dried some. He had some relief with toradol, but it made him nauseous. He states he takes norco/hydrocodone at home and is out of his medicine until 10/30. He states his PCP prescribed him 90 tablets, but usually prescribes 120 tablets which lasts the whole month, but since he prescribed less he ran out The patient had not ambulated or showered yet when I saw him - Objective Vital Signs & Weight: Vital Signs (12 hours) Temp Pulse Resp BP Pulse Ox 10/27/20 10:57 98.4 F 81 18 115/81 98 10/27/20 07:32 98.4 F 70 18 103/69 99 Weight Admit Weight 153 lb 1.6 oz Weight 153 lb 1.6 oz I&O: 10/26/20 10/27/20 10/28/20 06:59 06:59 06:59 Intake Total 1483 3458 Output Total 925 3000 Balance 558 458 Result Diagrams: 10/27/20 05:04 10/26/20 10:30 Hospitalist ROS - Review of Systems Constitutional: denies: fever, chills - Medication Medications: Active Medications Generic Name Dose Route Start Last Admin Trade Name Freq PRN Reason Stop Dose Admin Aripiprazole 15 mg 10/26/20 09:00 10/27/20 08:58 Aripiprazole 15 Mg Tab PO 15 mg DAILY MELODY Administration Clindamycin HCl 300 mg 10/26/20 21:00 10/27/20 08:58 Clindamycin 150 Mg Cap PO 300 mg BID MELODY Administration Ketorolac Tromethamine 10 mg 10/27/20 10:00 10/27/20 16:41 Ketorolac Tromethamine 10 Mg Tab PO 11/01/20 10:01 10 mg Q6H MELODY Administration Metformin HCl 500 mg 10/26/20 17:00 10/27/20 16:46 Metformin 500 Mg Tab PO 500 mg BID-WM MELODY Administration Morphine Sulfate 4 mg 10/26/20 01:20 10/27/20 16:41 Morphine 4 Mg/Ml Vial SLOW IVP 4 mg Q4H PRN Administration Pain Pantoprazole Sodium 40 mg 10/27/20 09:00 10/27/20 08:58 Pantoprazole 40 Mg Tab PO 40 mg DAILY MELODY Administration Rifampin 300 mg 10/26/20 22:00 10/27/20 08:58 Rifampin 300 Mg Cap PO 300 mg 1000,2200 MELODY Administration Sodium Chloride 10 ml 10/26/20 21:00 10/27/20 09:09 Flush - Normal Saline 10 Ml Syringe IVF 10 ml Q12HR MELODY Administration - Exam General Appearance: NAD, awake alert Eye: PERRL, anicteric sclera ENT: normocephalic atraumatic, no oropharyngeal lesions Neck: no JVD Heart: RRR, no murmur, no gallops, no rubs Respiratory: CTAB, no wheezes, no rales, no ronchi Gastrointestinal: soft, non-tender, non-distended, normal bowel sounds Gastrointestinal - other findings: scarring/sinus tract near pubic area Extremities: no cyanosis, no clubbing, no edema Skin - other findings: improving skin lesions on chest, abdomen. Groin healed, drainage axilla bet Neurological: cranial nerve grossly intact, normal sensation to touch, no focal deficits, no new deficit Musculoskeletal: normal tone, normal strength, no muscle wasting Psychiatric: normal affect, normal behavior, A&O x 3 Hosp A/P - Plan CT chest/abdomen pelvis: no signs of abscess This is a 30 year old male with history of hidradenitis suppurativa who presents with worsening HS lesions Hidradenitis suppurativa exacerbation - received vanc, cefepime/flagyl in ER and started on vancomycin and zosyn initially here. CT chest/abdomen pelvis showed no fistula or abscess. Discussed with script reader at [facility] who recommended resuming clindamycin and rifampin - Wound culture shows no growth. Surgery consulted and did not have any recomm endations regarding drainage. WBC worsening so will consult ID. He may need restarting of a biologic, however consider doing that in the outpatient setting with dermatology Leukocytosis- due to worsening HS - WBC worsened to 28. Clinically however lesions appear better than yesterday. Will monitor - will consult ID as well. Continue clindamycin and rifampin for now Chest pain - likely secondary to inflammation/infection from lesions vs GERD - troponins negative - continue protonix and toradol. Will add norco prn Bilateral groin pain - likely from HS lesions. CT pelvis showed no infection - continue norco prn Weakness - PT evaluated the patient and he was only able to walk two steps. Tobacco abuse - counseled on cessation Schizohprenia/Bipolar - continue abilify Dispo: continue with PT, follow up improvement in leukocytosis
[2020-10-27] MEDS: HYDROcodone/Acetaminophen 5/325 mg Tablet PO PRN (19:40)
[2020-10-28] MEDS: Morphine 4 MG/ML VIAL SLOW IVP PRN ×4 (02:55→19:36)
[2020-10-28] MEDS: Ketorolac Tromethamine 10 MG TAB PO SCH ×4 (03:09→21:18)
[2020-10-28 08:01] LABS: Hemoglobin 11.8 g/dL (14.0-18.0); Mean Corpuscular HGB CONC 31.5 g/dL (32.0-36.0); Mean Corpuscular Hemoglobin 26.1 pg (27.0-31.0); Mean Corpuscular Volume 82.7 fL (78.0-98.0); Mean Platelet Volume 6.3 fL (7.4-10.4); Platelet Count 458 thou/uL (130-400); RBC Distribution Width 14.6 % (11.5-14.5); Red Blood Cell (RBC) Count 4.52 mill/uL (4.70-6.10); White Blood Cell (WBC) Count 24.3 thou/uL (4.8-10.8)
[2020-10-28] MEDS: Aripiprazole 15 MG TAB PO SCH (08:25)
[2020-10-28] MEDS: Clindamycin 150 MG CAP PO SCH ×2 (08:25→21:18)
[2020-10-28] MEDS: metFORMIN 500 MG TAB PO SCH ×2 (08:25→17:27)
[2020-10-28] MEDS: Ondansetron PF 4 MG/2 ML Vial IVP PRN ×2 (08:26→15:29)
[2020-10-28] MEDS: Rifampin 300 MG CAP PO SCH ×2 (08:27→21:18)
--- NOTE | 2020-10-28 15:41 | ULT ---
GALLBLADDER ULTRASOUND: HISTORY: Right upper quadrant pain. Elevated liver enzymes. FINDINGS: Real-time imaging of the right upper quadrant shows a contracted-appearing gallbladder. I am not cer tain whether the patient has been NPO. The common bile duct is in the 3-4 mm range. The visualized liver parenchyma shows no focal findings. The liver measures 15.5 cm in length. Limited visualizati on of the pancreas. No abnormalities noted. The right kidney is normal in size and not obstructed. IMPRESSION: Contracted gallbladder. This may be related to non-fasting state. Clinical correlation is recommend ed. POS: PATRICE
--- NOTE | 2020-10-28 16:38 | PDOC.HOSPP ---
- Subjective Encounter Date: 10/28/20 Encounter Time: 13:00 Subjective: F/u: hidradenitis Wounds are improving, however patient states that he still has a lot of pain, especially when he walks. He states when he walked to the bathroom, he had some ulcers that were dripping blood from the back of his legs. He was hardly able to walk a few steps ELevated ALP: the patient denies abdominal pain with eating, nausea/vomiting - Objective Vital Signs & Weight: Vital Signs (12 hours) Temp Pulse Resp BP Pulse Ox 10/28/20 15:30 99 F 91 16 110/61 98 10/28/20 11:15 98 F 84 16 108/68 98 10/28/20 07:15 97.8 F 100 16 123/74 98 Weight Admit Weight 153 lb 1.6 oz Weight 153 lb 1.6 oz I&O: 10/27/20 10/28/20 10/29/20 06:59 06:59 06:59 Intake Total 3458 2588 300 Output Total 3000 1725 Balance 458 863 300 Result Diagrams: 10/28/20 07:41 10/26/20 10:30 Hospitalist ROS - Review of Systems Constitutional: denies: fever, chills - Medication Medications: Active Medications Generic Name Dose Route Start Last Admin Trade Name Freq PRN Reason Stop Dose Admin Hydrocodone Bitart/Acetaminophen 1 tab 10/27/20 16:49 10/27/20 19:40 Hydrocodone/Acetaminophen 5/325 Mg Tablet PO 1 tab Q4H PRN Administration Severe Pain (7-10) Aripiprazole 15 mg 10/26/20 09:00 10/28/20 08:25 Aripiprazole 15 Mg Tab PO 15 mg DAILY MELODY Administration Clindamycin HCl 300 mg 10/26/20 21:00 10/28/20 08:25 Clindamycin 150 Mg Cap PO 300 mg BID MELODY Administration Ketorolac Tromethamine 10 mg 10/27/20 10:00 10/28/20 15:29 Ketorolac Tromethamine 10 Mg Tab PO 11/01/20 10:01 10 mg Q6H MELODY Administration Metformin HCl 500 mg 10/26/20 17:00 10/28/20 08:25 Metformin 500 Mg Tab PO 500 mg BID-WM MELODY Administration Morphine Sulfate 4 mg 10/26/20 01:20 10/28/20 15:29 Morphine 4 Mg/Ml Vial SLOW IVP 4 mg Q4H PRN Administration Pain Ondansetron HCl 4 mg 10/26/20 19:41 10/28/20 15:29 Ondansetron Pf 4 Mg/2 Ml Vial IVP 4 mg Q6H PRN Administration Nausea/Vomiting Pantoprazole Sodium 40 mg 10/27/20 09:00 10/28/20 08:25 Pantoprazole 40 Mg Tab PO 40 mg DAILY MELODY Administration Rifampin 300 mg 10/26/20 22:00 10/28/20 08:27 Rifampin 300 Mg Cap PO 300 mg 1000,2200 MELODY Administration Sodium Chloride 10 ml 10/26/20 21:00 10/28/20 08:26 Flush - Normal Saline 10 Ml Syringe IVF 10 ml Q12HR MELODY Administration - Exam General Appearance: NAD, awake alert Eye: PERRL, anicteric sclera ENT: normocephalic atraumatic, no oropharyngeal lesions Neck: supple, no JVD Respiratory: CTAB, no wheezes, no rales, no ronchi Gastrointestinal: soft, non-tender, non-distended, normal bowel sounds, no hepatomegaly Extremities: no cyanosis, no clubbing, no edema Skin: normal turgor, no lesions, no rashes Skin - other findings: dried up skin lesions on chest/abdomen, no pus expressed Neurological: cranial nerve grossly intact, normal sensation to touch, no weakness, no focal deficits Musculoskeletal: normal tone, normal strength, no muscle wasting Psychiatric: normal affect, normal behavior, A&O x 3 Hosp A/P - Plan CT chest/abdomen pelvis: no signs of abscess This is a 30 year old male with history of hidradenitis suppurativa who presents with worsening HS lesions Hidradenitis suppurativa exacerbation - received vanc, cefepime/flagyl in ER and started on vancomycin and zosyn initially here. CT chest/abdomen pelvis showed no fistula or abscess. - Discussed with firer powerhouse at [facility] who recommended resuming clindamycin and rifampin. Continue with hibiclens wash and benzoyl peroxide body wash while showering. Topical clindamycin 1% bid ordered - Wound culture shows no growth. Surgery consulted and did not have any recommendations regarding drainage. ID consulted as well - needs outpatient dermatology follow up and likely will need to restart humira or other alternative - still in significant pain precluding discharge Leukocytosis- due to worsening HS - WBC improved from 28 to 24. Continue clindamycin and rifampin - ID has been consulted Chest pain - likely secondary to inflammation/infection from lesions vs GERD - troponins negative - continue protonix and toradol. Will add norco prn Bilateral groin pain - likely from HS lesions. CT pelvis showed no infection - continue norco prn Weakness - PT evaluated the patient and he was only able to walk two steps. THey recommended rehab. Elevated ALP - RUQ ultrasound showed contracted gallbladder, no dilation. Will repeat LFT tomorrow. Patient has no RUQ tenderness Tobacco abuse - counseled on cessation Schizophrenia/Bipolar - continue abilify Dispo: continue with PT,
[2020-10-28] MEDS: HYDROcodone/Acetaminophen 5/325 mg Tablet PO PRN (17:27)
[2020-10-29] MEDS: Ondansetron PF 4 MG/2 ML Vial IVP PRN ×2 (02:52→15:26)
[2020-10-29] MEDS: Ketorolac Tromethamine 10 MG TAB PO SCH ×3 (03:28→15:23)
[2020-10-29 05:35] LABS: Mean Corpuscular HGB CONC 31.7 g/dL (32.0-36.0); Mean Corpuscular Volume 85.1 fL (78.0-98.0); Mean Platelet Volume 6.2 fL (7.4-10.4); Platelet Count 386 thou/uL (130-400); RBC Distribution Width 14.4 % (11.5-14.5); Red Blood Cell (RBC) Count 4.08 mill/uL (4.70-6.10); White Blood Cell (WBC) Count 21.2 thou/uL (4.8-10.8)
[2020-10-29 05:50] LABS: ALT (SGPT) 7 U/L (8-55); AST (SGOT) 9 U/L (5-34); Albumin 2.7 g/dL (3.5-5.0); Alkaline Phosphatase 121 U/L (40-110); Bilirubin, Direct 0.4 mg/dL (0.1-0.3); Bilirubin, Total 0.6 mg/dL (0.2-1.2); Protein, Total 8.2 g/dL (6.0-8.3)
[2020-10-29] MEDS: Aripiprazole 15 MG TAB PO SCH (09:20)
[2020-10-29] MEDS: Clindamycin 150 MG CAP PO SCH (09:20)
[2020-10-29] MEDS: metFORMIN 500 MG TAB PO SCH (09:20)
[2020-10-29] MEDS: Rifampin 300 MG CAP PO SCH (09:21)
[2020-10-29] MEDS: HYDROcodone/Acetaminophen 5/325 mg Tablet PO PRN ×2 (11:14→15:25)
[2020-10-29 15:18] VITALS: BP 122/78; TEMP 98.4
--- NOTE | 2020-10-29 16:34 | CON ---
DATE OF CONSULTATION: 10/29/2020 HISTORY OF PRESENT ILLNESS: Mr. Olivo has been readmitted. As I had described in the recent first consultation, the patient has a history of hidradenitis suppurativa, bipolar disorder. Treated for many years with various interventions including antimicrobials, Accutane, low-dose corticosteroids, and TNF inhibitors. The patient tried Humira for one month and then he had the impression that it made him more irritable and so he stopped taking it, although he had noticed some improvements. Admitted to [facility] and this will be the first admission in May 2018 with some surgical interventions and antimicrobial therapy. Dermatology then evaluated the patient and contraindicated corticosteroids and advised oral clindamycin and rifampin. The next admission in March 2019 with the same history of exacerbation, treated again with antimicrobial therapy, and transitioned to oral minocycline. He was discharged on corticosteroids, again antimicrobial therapy plus Accutane. Last admission on August 27, 2020, the same history of exacerbation, the diagnosis was acne conglobata, acne fulminans. A punch biopsy was done and then the specimen demonstrated dermal fibrosis and chronic inflammatory infiltrate. There were numerous plasma cells. Infectious stain was negative. A note from Dermatology then again stated that diagnosis is acne conglobata/hidradenitis suppurative with scarring and several inflamed nodules. The Dermatology recommended Humira and he was somewhat resistant to that idea and he was then admitted to [facility], and I discussed the possibilities of using either Remicade or Humira. Remicade would require a[employer]c plans staff officer while Humira is more convenient since he can self administer it. Right now, he is back in the hospital with the same problem of recrudescence, this time mostly in the perineal area. He had been taking the antimicrobials, but stopped because they were causing him to become nauseated. He was having some diarrhea as well. Denies any headaches. No fever. No respiratory symptoms. No abdominal pain. Voiding without difficulty. No bleeding. No neurological symptoms. MEDICAL HISTORY: Acne conglobata/hidradenitis suppurativa, hypertension, chronic elevated WBC count. SURGICAL HISTORY: Drainage of multiple abscesses, bipolar disorder, schizophrenia, ADHD. SOCIAL HISTORY: Lives with family. Still smoking, but he seems willing to quit. No drug use. ALLERGIES: NONE. MEDICATION LIST: At this point includes; 1. Clindamycin. 2. Hydrocodone. 3. Ketorolac. 4. Metformin. 5. Rifampin. PHYSICAL EXAMINATION: VITAL SIGNS: T-max 99, BP 120/70, heart rate 92, respiratory rate 14, O2 saturation 100. SKIN: Shows extensive areas of acne conglobata with scarring and hidradenitis suppurativa in the flexural areas. No lymphadenopathy. HEENT: Ocular movements are conjugate. Oral cavity normal. NECK: Supple. LUNGS: Symmetric, clear breath sounds. HEART: S1 and S2, regular rate. ABDOMEN: Soft, flat. No ascites. No organomegaly or bladder distention. MUSCULOSKELETAL: No joint inflammatory activity. Moves extremities equally. LABORATORY DATA: White cell count was 26,000, now it is 21,000. Hemoglobin 11, platelets are down from 424 to 386. There is a skin culture, which showed no organisms and few WBCs and moderate epithelial cells. Dr. Sanabria evaluated the patient and he basically stated that he would not be able to offer any solution. ASSESSMENT: Acne conglobata/hidradenitis suppurativa severe with previous failure of response to antimicrobials and surgical intervention, and unwillingness to try TNF inhibitors because of some perception that was causing him to become more irritable. I have discussed with him and convinced him that he needs to retry Humira rather than Remicade, and he can be discharged and I will send a prescription for Humira to his Pharmacy. Humira needs to be approved by Medicaid, so there is going to be a delay in initiation of treatment. Maybe he could get a dose before he leaves the hospital, but this is not the typical treatment that is administered in the hospital situation. He is not willing to continue taking antimicrobial therapy and I do not think it is being very effective anyway. Job ID: [id number]
--- NOTE | 2020-10-29 18:46 | PDOC.DS.DS ---
Provider - Provider Date of Admission: 10/25/20 23:02 Date of Discharge: 10/29/20 Admitting Provider: Porter Blair DO Consultations: General Surgery (Dr. Jaskaran Sanabria), Infectious Disease ([facility]) Primary Care Physician: Larry Siu MD Course - Hospital Course Hospital Course: Discharge Diagnoses: 1. Hidradenitis Suppurative Exacerbation 2. Leukocytosis 3. Elevated ALP 4. Abdominal pain, possibly from GERD 5. Dehydration. Brief HPI: This 30-year-old male with past medical history of hidradenitis suppurativa presented to the hospital with worsening skin lesions all over his body and severe pain which was making it difficult for him to walk. He also reported decreased p.o. intake. Presented to the hospital with a white blood cell count of 26.9. He was initially started on IV vancomycin and Zosyn and metronidazole admitted to the hospital for further work-up. Hospital course: Hidradenitis exacerbation: Patient was noted to have purulent discharge from his bilateral axilla, from 1 lesion in his abdomen and bilateral groin. He was started on oral doxycycline the following day with improvement in his lesions. His wounds dried up pretty well the following day. I discussed with Dr. Aragon from [facility] over the weekend who recommended startin g clindamycin and rifampin 300 mg bid for three months and topical clindamycin 1% bid, as well as benzyl peroxide wash and hibiclens wash. The patient was started on this with improvement in his white blood cell count, which eventually came down to 21. General surgery was consulted and did not see any lesions that were amenable to drainage. Infectious disease was consulted as well. He did not recommend any additional antibiotics. Patient was advised that he needs to restart Humira. He was initially reluctant but is now agreeable. I have called his intelligence director and set up an appointment at [facility] tomorrow at 11:15 AM. I also started him on Metformin in the hospital, however due to a recall on the medicine I have not prescribed this on discharge. #Chest pain: This is likely secondary to inflammation from his hidradenitis. Troponins were negative. CT scan of his chest showed no evidence of pneumonia. Chest pain resolved at the time of discharge #Abdominal pain/groin pain #Elevated ALP: Patient had a CT scan of his abdomen and pelvis which showed no fistulous or abscesses. He was started on Protonix with improvement and will be discharged with this. He also had a mildly elevated alk phos. Abdominal ultrasound showed a contracted gallbladder with no stones. This down trended at the time of discharge and should be repeated in a week s Chronic pain: Patient has chronic pain from his skin lesions. This was treated with Toradol and [place] while in the hospital. I spoke with his primary care doctor who will refill 1 month supply of [place]. He was given 3 additional tablets on discharge until he picks up his prescription from his PCP from [place]. He was also discharged on toradol. Pertinent Studies: CT chest abdomen/pelvis: Extensive skin thickening diffusely in the lower abdomen with no abnormal fluid collection. Abdominal Ultrasound: Contracted gallbladder - Labs Lab Results: 10/29/20 05:07 10/26/20 10:30 Abnormal Lab Results - Last 48 hrs 10/28/20 07:41: WBC 24.3 H, RBC 4.52 L, Hgb 11.8 L, Hct 37.4 L, MCH 26.1 L, MCHC 31.5 L, RDW 14.6 H, Plt Count 458 H, MPV 6.3 L 10/29/20 05:07: Direct Bilirubin 0.4 H, ALT 7 L, Alkaline Phosphatase 121 H, Albumin 2.7 L 10/29/20 05:07: WBC 21.2 H, RBC 4.08 L, Hgb 11.0 L, Hct 34.7 L, MCHC 31.7 L, MPV 6.2 L Microbiology - Entire Visit 10/26/20 12:05 Skin Bacterial Culture - Final - Physical Exam Vitals: Vital Signs (12 hours) Temp Pulse Resp BP Pulse Ox 10/29/20 15:17 98.4 F 99 14 122/78 100 10/29/20 12:12 98.5 F 92 14 121/75 100 10/29/20 08:27 97.4 F L 75 12 101/68 100 Weight Admit Weight 153 lb 1.6 oz Weight 153 lb 1.6 oz Physical Exam: The patient was seen and examined on the day of discharge. General Appearance: NAD, awake alert Eye: PERRL, anicteric sclera ENT: normocephalic atraumatic, no oropharyngeal lesions Neck: supple, no JVD Respiratory: CTAB, no wheezes, no rales, no ronchi Gastrointestinal: soft, non-tender, non-distended, normal bowel sounds, no hepatomegaly Extremities: no cyanosis, no clubbing, no edema Skin: normal turgor, no lesions, no rashes Skin - other findings: dried up skin lesions on chest/abdomen, no pus expressed. Extensive hidradenitis and acne. Neurological: cranial nerve grossly intact, normal sensation to touch, no wea kness, no focal deficits Musculoskeletal: normal tone, normal strength, no muscle wasting Psychiatric: normal affect, normal behavior, A&O x 3 Problem - Discharge Plan Plan of Treatment: Patient needs to follow-up with Dr. Irish Bojorquez tomorrow at 1130 in [place]. He should have a repeat CBC in a week. He was discharged on clindamycin, rifampin, topical clindamycin, Hibiclens and benzyl peroxide wash. Repeat ALP in a week as well to evaluate for resolution. - Time spent with Patient (mins): 35 Plan - Discharge Medications Prescriptions: Clindamycin [Cleocin] 300 mg PO BID #120 tab Clindamycin Phosphate [Clindamycin Phosphate 1% Lotion] 1 applic TOP BID #1 bot HYDROcodone Bit/APAP 5/325 [[place]] 1 tab PO Q4H PRN #3 tab PRN Reason: Severe Pain (7-10) Pantoprazole [Protonix] 40 mg PO DAILY #30 tab Rifampin [Rifadin] 300 mg PO 1000,2200 #60 cap Ketorolac Tromethamine [Toradol] 10 mg PO Q6H PRN #18 tab PRN Reason: Severe Pain (7-10) Home Medications: Medication Instructions Recorded Confirmed Type Aripiprazole [Abilify] 15 mg PO DAILY 10/01/20 10/26/20 History Clindamycin Phosphate [Clindamycin 1 applic TOP BID #1 bot 10/29/20 Rx Phosphate 1% Lotion] Clindamycin [Cleocin] 300 mg PO BID #120 tab 10/29/20 Rx HYDROcodone Bit/APAP 5/325 [[place]] 1 tab PO Q4H PRN #3 tab 10/29/20 Rx Ketorolac Tromethamine [Toradol] 10 mg PO Q6H PRN #18 tab 10/29/20 Rx Pantoprazole [Protonix] 40 mg PO DAILY #30 tab 10/29/20 Rx Rifampin [Rifadin] 300 mg PO 1000,2200 #60 cap 10/29/20 Rx Allergies: No Known Allergies Allergy (Verified 10/26/20 02:44) vertified by patient - Discharge Instructions Discharge Instructions:: Hidradenitis Suppurativa Hidradenitis Suppurativa (Patient Education) Considered a severe form of acne, hidradenitis suppurativa is a chronic skin inflammation that usually occurs deep in the skin in areas of the body with sweat glands, such as the groin or armpits. It is characterized by a combination of blackheads and red lesions that break open and drain pus, which may cause itching or sweating. As the red bumps grow in size, they can become more painful. Hidradenitis suppurativa occurs when oil glands and hair follicles become blocked with sweat gland fluid, skin cells and other elements found in hair follicles. These substances become trapped and push out into the surrounding tissue. A break or cut of the skin then allows bacteria to enter the area and cause the inflammation. Treatment depends on the severity of the condition. For mild cases, home remedies work well, such as warm compresses and regular washing with antibacterial soap. In more difficult cases, a topical or oral antibiotic medication may be needed to treat the infection. Your intelligence director may also prescribe oral retinoids to stop oil glands from plugging up the hair follicle; non-steroidal anti-inflammatory drugs to relieve pain and swelling; and corticosteroids. Activity:: Activity as Tolerated Nourishment:: Heart Healthy Diet - Follow up Plan Referrals: Larry Siu MD [Primary Care Provider] - Disposition: HOME Quality - Care Measures CORE MEASURES:: N/A
== END 2020-10-29 17:44 | disposition home or self-care (01) | DRG 607 ==
LOC: SURG A 23:02
PROVIDERS: ADMIT Family Medicine; ATTEND Family Medicine
DX: L73.2 Hidradenitis suppurativa (principal); D72.829 Elevated white blood cell count, unspecified; F31.9 Bipolar disorder, unspecified; F20.9 Schizophrenia, unspecified; F98.8 Other specified behavioral and emotional disorders with onset usually occurring in childhood and adolescence; F17.210 Nicotine dependence, cigarettes, uncomplicated; K21.9 Gastro-esophageal reflux disease without esophagitis; E86.0 Dehydration; G89.29 Other chronic pain; Z79.899 Other long term (current) drug therapy
CPT/HCPCS: 36415; 71260; 74177; 76705; 80053; 80076; 83036; 84484; 85027; 87070; 87205; 87635; J2270; J2405; J2543; J3370; J3490; J7050; Q9967; U0003

== ENCOUNTER 2021-02-12 22:59 | Inpatient (IN) | payer OTHER ==
[2021-02-13] MEDS ORDERED: Acetaminophen 325 MG TAB PO PRN (01:09)
[2021-02-13] MEDS ORDERED: Ondansetron PF 4 MG/2 ML Vial IVP PRN (01:09)
[2021-02-13] MEDS ORDERED: hydrALAZINE 20 MG/ML VIAL SLOW IVP PRN ×2 (01:12→02:28)
[2021-02-13 01:15] VITALS: BMI 19.8
[2021-02-13] MEDS: Morphine 4 MG/ML VIAL SLOW IVP PRN ×2 (01:46→08:30)
[2021-02-13] MEDS: HYDROcodone/Acetaminophen 5/325 mg Tablet PO PRN ×3 (03:29→21:00)
[2021-02-13] MEDS: Sodium Chloride 0.9% 1,000 ML IV SCH ×2 (03:31→19:06)
[2021-02-13] MEDS ORDERED: Vancomycin 1 GM in Premix Bag 1 BAG IVPB SCH (04:00)
[2021-02-13] MEDS: Vancomycin 1 GM in Premix Bag 1 BAG IVPB SCH ×2 (05:27→13:22)
[2021-02-13 05:51] LABS: SARS-CoV-2 PCR by NAA Not Detected (NotDetected)
[2021-02-13 06:39] LABS: Hemoglobin 12.3 g/dL (14.0-18.0); Mean Corpuscular HGB CONC 31.9 g/dL (32.0-36.0); Mean Corpuscular Hemoglobin 25.1 pg (27.0-31.0); Mean Corpuscular Volume 78.5 fL (78.0-98.0); Mean Platelet Volume 6.6 fL (7.4-10.4); Platelet Count 414 thou/uL (130-400); RBC Distribution Width 15.4 % (11.5-14.5); Red Blood Cell (RBC) Count 4.93 mill/uL (4.70-6.10)
[2021-02-13 06:49] LABS: Lactic Acid 2.7 mmol/L (0.5-2.2)
[2021-02-13 06:53] LABS: Anion Gap 15 mmol/L (10-20); BUN (Urea Nitrogen) 9 mg/dL (8.9-20.6); Calc. Creatinine Clearance 133 mL/min (70-130); Calcium 9.1 mg/dL (7.8-10.44); Carbon Dioxide 20 mmol/L (22-29); Chloride 99 mmol/L (98-107); Glucose 158 mg/dL (70-105); Potassium 4.4 mmol/L (3.5-5.1); Sodium 130 mmol/L (136-145)
[2021-02-13 06:56] LABS: Troponin I Less than 0.010 ng/mL (< 0.028)
[2021-02-13 08:04] LABS: Band 6 % (5-11); Lymphocytes 8 % (21-51); MDiff Complete? YES; Neutrophil 86 % (42-75); Platelet Morphology Comment Appears Increased; Polychromasia SLIGHT = 2-3 cells (100X) (0-2/hpf); Rouleaux Formation SLIGHT = 1-5 cells (100X) (None Seen)
[2021-02-13] MEDS ORDERED: Cefepime 1 GM in Sodium Chloride 0.9% 100 ML IVPB SCH (09:00)
[2021-02-13 10:56] LABS: Troponin I Less than 0.010 ng/mL (< 0.028)
[2021-02-13 12:30] LABS: Bacteria/HPF None Seen HPF (None Seen); Bilirubin Negative (Negative); Blood, Urine Negative (Negative); Clarity Clear (Clear); Glucose, Urine (Dipstick) Normal (Negative); Ketone, Urine Negative (Negative); Leukocyte Negative Leu/uL (Negative); Nitrite Negative (Negative); Protein, Urine (Dipstick) 10 mg/dL (Neg-Trace); RBC/HPF 0-3 HPF (0-3); Specific Gravity, Urine 1.023 (1.002-1.036); Squamous Epithelial None Seen HPF (0-3); Urobilinogen Normal mg/dL (Less than 2); WBC/HPF 0-3 HPF (0-3)
[2021-02-13 12:32] LABS: Urine Culture Reflex No No
[2021-02-13 19:32] LABS: Syphilis Antibody Nonreactive (Nonreactive); Syphilis Antibody Index 0.09 S/CO (<1.00 Non-Reactive)
[2021-02-13 19:34] LABS: HIV (1/2) Antibody/Antigen Non-Reactive (NonReactive); HIV 1/2 INDEX 0.16 S/CO (<1.00); Hep C IgG Ab Non-Reactive (NonReactive); Hep C Index 0.11 S/CO (0-0.79)
[2021-02-14] MEDS: Sodium Chloride 0.9% 1,000 ML IV SCH (04:53)
[2021-02-14 07:21] LABS: #Basophils 0.1 thou/uL (0.0-0.2); #Eosinphils 0.1 thou/uL (0.0-0.7); #Lymphocytes 5.5 thou/uL (1.20-3.40); #Monocytes 1.1 thou/uL (0.11-0.59); #Neutrophils 14.6 thou/uL (1.40-6.50); %Basophils 0.3 % (0.0-1.0); %Eosinophils 0.5 % (0.0-10.0); %Lymphocytes 25.7 % (21.0-51.0); %Monocytes 4.9 % (0.0-10.0); %Neutrophils 68.7 % (42.0-75.0); Hemoglobin 11.7 g/dL (14.0-18.0); Mean Corpuscular HGB CONC 31.4 g/dL (32.0-36.0); Mean Corpuscular Hemoglobin 24.8 pg (27.0-31.0); Mean Platelet Volume 6.5 fL (7.4-10.4); Platelet Count 443 thou/uL (130-400); RBC Distribution Width 15.6 % (11.5-14.5); Red Blood Cell (RBC) Count 4.71 mill/uL (4.70-6.10); White Blood Cell (WBC) Count 21.3 thou/uL (4.8-10.8)
[2021-02-14 07:46] LABS: Anion Gap 13 mmol/L (10-20); BUN (Urea Nitrogen) 6 mg/dL (8.9-20.6); Calc. Creatinine Clearance 129 mL/min (70-130); Calcium 8.4 mg/dL (7.8-10.44); Carbon Dioxide 24 mmol/L (22-29); Chloride 104 mmol/L (98-107); Glucose 83 mg/dL (70-105); Potassium 4.2 mmol/L (3.5-5.1); Sodium 137 mmol/L (136-145)
[2021-02-14] MEDS ORDERED: predniSONE 20 MG TAB PO SCH (08:00)
[2021-02-14] MEDS: HYDROcodone/Acetaminophen 5/325 mg Tablet PO PRN (08:15)
[2021-02-14 08:45] VITALS: TEMP 98.1
[2021-02-14] MEDS ORDERED: Enoxaparin Sodium 40 MG/0.4 ML SYRINGE SC SCH (09:00)
[2021-02-14 11:17] VITALS: BP 110/64
== END 2021-02-14 13:32 | disposition home or self-care (01) | DRG 607 ==
LOC: T4-B 02-13 00:53 → OBSVTOIN 02-13 01:09
PROVIDERS: ADMIT Internal Medicine; ATTEND Internal Medicine
DX: L70.1 Acne conglobata (principal); T78.40XA Allergy, unspecified, initial encounter; L73.2 Hidradenitis suppurativa; I10 Essential (primary) hypertension; D64.9 Anemia, unspecified; G89.29 Other chronic pain; F31.9 Bipolar disorder, unspecified; Z88.8 Allergy status to other drugs, medicaments and biological substances; F17.210 Nicotine dependence, cigarettes, uncomplicated; F90.9 Attention-deficit hyperactivity disorder, unspecified type; F20.9 Schizophrenia, unspecified; M46.1 Sacroiliitis, not elsewhere classified; M45.9 Ankylosing spondylitis of unspecified sites in spine
CPT/HCPCS: 36415; 36416; 80048; 81001; 83605; 84484; 85025; 85379; 86140; 86780; 86803; 87389; 87635; J0692; J2270; J3370; J3490; J7512; U0003; U0005

== ENCOUNTER 2021-09-19 12:21 | Emergency (ER) | payer OTHER ==
[2021-09-19 12:55] LABS: Hemoglobin 14.1 g/dL (14.0-18.0); Mean Corpuscular HGB CONC 32.7 g/dL (32.0-36.0); Mean Corpuscular Hemoglobin 26.7 pg (27.0-31.0); Mean Corpuscular Volume 81.6 fL (78.0-98.0); Mean Platelet Volume 6.9 fL (7.4-10.4); Platelet Count 358 thou/uL (130-400); RBC Distribution Width 16.9 % (11.5-14.5); Red Blood Cell (RBC) Count 5.28 mill/uL (4.70-6.10)
[2021-09-19 13:18] LABS: ALT (SGPT) 21 U/L (8-55); AST (SGOT) 23 U/L (5-34); Albumin 3.3 g/dL (3.5-5.0); Alkaline Phosphatase 204 U/L (40-110); Anion Gap 16 mmol/L (10-20); BUN (Urea Nitrogen) 4 mg/dL (8.9-20.6); Bilirubin, Total 0.7 mg/dL (0.2-1.2); Calc. Creatinine Clearance 0 mL/min (70-130); Calcium 9.6 mg/dL (7.8-10.44); Carbon Dioxide 23 mmol/L (22-29); Chloride 100 mmol/L (98-107); Glucose 92 mg/dL (70-105); Potassium 4.4 mmol/L (3.5-5.1); Protein, Total 9.3 g/dL (6.0-8.3); Sodium 135 mmol/L (136-145)
[2021-09-19 13:37] LABS: Anisocytosis SLIGHT = 6-15 cells (100X) (0-5/hpf); Band 5 % (5-11); Eosinophils 1 % (0-10); Lymphocytes 15 % (21-51); MDiff Complete? YES; Monocytes 3 % (0-10); Neutrophil 76 % (42-75); Platelet Morphology Comment Appears Adequate
[2021-09-19] MEDS ORDERED: methylPREDNISolone Sod Succ/PF 125 MG/2 ML VIAL ONE (14:36)
[2021-09-19] MEDS ORDERED: Cefepime 2 GM VIAL ONE (14:36)
[2021-09-19] MEDS ORDERED: traMADol HCl 50 MG TAB ONE (14:36)
[2021-09-19] MEDS ORDERED: Vancomycin 1 GM/200 ML BAG ONE (14:36)
== END 2021-09-19 17:20 | disposition home or self-care (01) ==
LOC: ERS 12:21
DX: L73.2 Hidradenitis suppurativa (principal); R53.83 Other fatigue; D72.829 Elevated white blood cell count, unspecified; I10 Essential (primary) hypertension; F17.210 Nicotine dependence, cigarettes, uncomplicated; Z79.899 Other long term (current) drug therapy
CPT/HCPCS: 36415; 71045; 80053; 83605; 85025; 85652; 87040; 96365; 96366; 96367; 96375; J0692; J2930; J3370

== ENCOUNTER 2021-11-07 23:57 | Observation (INO) | payer OTHER ==
[2021-11-08 01:33] VITALS: BMI 19.8
[2021-11-08] MEDS ORDERED: Acetaminophen 325 MG TAB PO PRN (03:05)
[2021-11-08] MEDS: HYDROcodone/Acetaminophen 5/325 mg Tablet PO PRN ×4 (03:23→19:19)
[2021-11-08] MEDS ORDERED: Piperacillin/Tazobactam 3.375 GM in Sodium Chloride 0.9% 100 ML IVPB SCH ×2 (04:15→06:00)
[2021-11-08] MEDS: Vancomycin 1 GM in Premix Bag 1 BAG IVPB SCH ×3 (05:14→21:59)
[2021-11-08] MEDS: methylPREDNISolone Sod Succ 40 MG VIAL IVP SCH ×4 (05:14→21:59)
[2021-11-08 06:07] LABS: #Lymphocytes 1.3 thou/uL (1.20-3.40); #Monocytes 0.1 thou/uL (0.11-0.59); #Neutrophils 19.2 thou/uL (1.40-6.50); %Basophils 0.1 % (0.0-1.0); %Lymphocytes 6.5 % (21.0-51.0); %Monocytes 0.4 % (0.0-10.0); Hemoglobin 12.6 g/dL (14.0-18.0); Mean Corpuscular HGB CONC 32.6 g/dL (32.0-36.0); Mean Corpuscular Hemoglobin 26.9 pg (27.0-31.0); Mean Corpuscular Volume 82.6 fL (78.0-98.0); Mean Platelet Volume 6.4 fL (7.4-10.4); Platelet Count 323 thou/uL (130-400); RBC Distribution Width 15.3 % (11.5-14.5); Red Blood Cell (RBC) Count 4.68 mill/uL (4.70-6.10); White Blood Cell (WBC) Count 20.6 thou/uL (4.8-10.8)
[2021-11-08 06:28] LABS: Anion Gap 17 mmol/L (10-20); BUN (Urea Nitrogen) 9 mg/dL (8.9-20.6); Calc. Creatinine Clearance 97 mL/min (70-130); Calcium 8.5 mg/dL (7.8-10.44); Carbon Dioxide 18 mmol/L (22-29); Chloride 104 mmol/L (98-107); Glucose 254 mg/dL (70-105); Potassium 4.1 mmol/L (3.5-5.1); Sodium 135 mmol/L (136-145)
[2021-11-08] MEDS: Piperacillin/Tazobactam 3.375 GM in Sodium Chloride 0.9% 100 ML IVPB SCH ×2 (08:53→18:04)
[2021-11-08] MEDS: Aripiprazole 15 MG TAB PO SCH (08:53)
[2021-11-08 21:44] LABS: Vancomycin, Trough 14.2 ug/mL
[2021-11-09] MEDS: HYDROcodone/Acetaminophen 5/325 mg Tablet PO PRN ×2 (00:45→21:54)
[2021-11-09] MEDS: Piperacillin/Tazobactam 3.375 GM in Sodium Chloride 0.9% 100 ML IVPB SCH ×4 (00:45→18:37)
[2021-11-09] MEDS: methylPREDNISolone Sod Succ 40 MG VIAL IVP SCH ×3 (05:44→17:41)
[2021-11-09] MEDS: Vancomycin 1 GM in Premix Bag 1 BAG IVPB SCH ×3 (05:46→21:55)
[2021-11-09] MEDS: Aripiprazole 15 MG TAB PO SCH (07:56)
[2021-11-09 15:16] LABS: Hemoglobin 11.5 g/dL (14.0-18.0); Mean Corpuscular Volume 82.2 fL (78.0-98.0); Mean Platelet Volume 6.4 fL (7.4-10.4); Platelet Count 353 thou/uL (130-400); RBC Distribution Width 15.2 % (11.5-14.5); Red Blood Cell (RBC) Count 5.01 mill/uL (4.70-6.10); White Blood Cell (WBC) Count 27.4 thou/uL (4.8-10.8)
[2021-11-09 15:20] LABS: Band 8 % (5-11); Hypochromia SLIGHT = 6-15 cells (100X) (0-5/hpf); Lymphocytes 6 % (21-51); MDiff Complete? YES; Neutrophil 86 % (42-75); Platelet Morphology Comment Appears Adequate; Polychromasia SLIGHT = 2-3 cells (100X) (0-2/hpf)
[2021-11-09] MEDS ORDERED: Ondansetron PF 4 MG/2 ML Vial IVP PRN (16:28)
[2021-11-09 21:24] LABS: Vancomycin, Trough 18.5 ug/mL
[2021-11-10] MEDS: methylPREDNISolone Sod Succ 40 MG VIAL IVP SCH ×2 (00:51→07:18)
[2021-11-10] MEDS: Piperacillin/Tazobactam 3.375 GM in Sodium Chloride 0.9% 100 ML IVPB SCH ×2 (00:55→09:05)
[2021-11-10] MEDS: Vancomycin 1 GM in Premix Bag 1 BAG IVPB SCH (06:18)
[2021-11-10 07:22] LABS: #Lymphocytes 1.8 thou/uL (1.20-3.40); #Monocytes 0.4 thou/uL (0.11-0.59); #Neutrophils 19.4 thou/uL (1.40-6.50); %Eosinophils 0.1 % (0.0-10.0); %Lymphocytes 8.4 % (21.0-51.0); %Monocytes 1.7 % (0.0-10.0); %Neutrophils 89.8 % (42.0-75.0); Hemoglobin 13.3 g/dL (14.0-18.0); Mean Corpuscular HGB CONC 31.2 g/dL (32.0-36.0); Mean Corpuscular Volume 83.3 fL (78.0-98.0); Mean Platelet Volume 6.5 fL (7.4-10.4); Platelet Count 359 thou/uL (130-400); RBC Distribution Width 15.2 % (11.5-14.5); Red Blood Cell (RBC) Count 5.11 mill/uL (4.70-6.10); White Blood Cell (WBC) Count 21.6 thou/uL (4.8-10.8)
[2021-11-10 07:33] LABS: Anion Gap 13 mmol/L (10-20); BUN (Urea Nitrogen) 5 mg/dL (8.9-20.6); Calc. Creatinine Clearance 124 mL/min (70-130); Calcium 9.3 mg/dL (7.8-10.44); Carbon Dioxide 26 mmol/L (22-29); Chloride 102 mmol/L (98-107); Glucose 120 mg/dL (70-105); Potassium 4.3 mmol/L (3.5-5.1); Sodium 137 mmol/L (136-145)
[2021-11-10] MEDS: Aripiprazole 15 MG TAB PO SCH (09:01)
[2021-11-10 13:22] VITALS: BP 143/92; TEMP 97.3
== END 2021-11-10 12:29 | disposition home or self-care (01) ==
LOC: T4-B 11-08 01:17
PROVIDERS: ADMIT Internal Medicine; ATTEND Family Medicine
DX: A41.9 Sepsis, unspecified organism (principal); L73.2 Hidradenitis suppurativa; F17.210 Nicotine dependence, cigarettes, uncomplicated; I10 Essential (primary) hypertension; F20.9 Schizophrenia, unspecified; Z79.899 Other long term (current) drug therapy; Z88.1 Allergy status to other antibiotic agents
CPT/HCPCS: 36415; 80048; 80202; 85025; 96374; 96375; 96376; G0378; J2405; J2543; J2920; J3370; J3490

== ENCOUNTER 2025-08-13 21:24 | Observation (INO) | payer MEDICAID ==
[2025-08-13 22:58] VITALS: BMI 23.4
[2025-08-13] MEDS: Ketorolac Tromethamine 30 MG (1 mL) VIAL IVP SCH (23:43)
[2025-08-14] MEDS ORDERED: HYDROcodone/Acetaminophen 5/325 mg Tablet PO PRN ×2 (00:56→01:20)
[2025-08-14] MEDS ORDERED: Acetaminophen 325 MG TAB PO PRN (00:58)
[2025-08-14] MEDS ORDERED: Ondansetron PF 4 MG/2 ML Vial IVP PRN (00:58)
[2025-08-14] MEDS ORDERED: Calcium Carbonate 500 MG ChewTAB PO PRN (00:58)
[2025-08-14] MEDS ORDERED: Electrolyte Replacement Protocol 1 EACH FS PRN (01:00)
[2025-08-14 05:25] LABS: #Basophils 0.03 10x3/uL (0.0-0.2); #Eosinophils Less than 0.03 10x3/uL (0.0-0.7); #Monocytes 0.13 10x3/uL (0.11-0.59); #Neutrophils 16.97 10x3/uL (1.40-6.50); %Basophils 0.2 % (0.0-1.0); %Eosinophils 0.0 % (0.0-10.0); %Lymphocytes 8.7 % (21.0-51.0); %Monocytes 0.7 % (0.0-10.0); %Neutrophils 89.5 % (42.0-75.0); Hematocrit 46.1 % (42.0-52.0); Hemoglobin 14.2 g/dL (14.0-18.0); Mean Corpuscular Hemoglobin 26.2 pg (27.0-31.0); Mean Corpuscular Volume 85.2 fL (78.0-98.0); Platelet Count 312 10x3/uL (130-400); Red Blood Cell (RBC) Count 5.41 mill/uL (4.70-6.10); White Blood Cell (WBC) Count 18.95 10x3/uL (4.8-10.8)
[2025-08-14 05:51] LABS: ALT (SGPT) 12 U/L (Less than 45); AST (SGOT) 24 U/L (11-34); Albumin 2.6 g/dL (3.1-4.5); Alkaline Phosphatase 104 U/L (40-110); Anion Gap 13 mmol/L (10-20); BUN (Urea Nitrogen) 10 mg/dL (8.9-20.6); Bilirubin, Total 0.2 mg/dL (0.3-1.2); Calc. Creatinine Clearance 138 mL/min (70-130); Calcium 8.6 mg/dL (7.8-10.44); Carbon Dioxide 20 mmol/L (22-29); Chloride 103 mmol/L (98-107); Globulin 4.7 g/dL (2.4-3.5); Glucose 184 mg/dL (70-105); Potassium 5.2 mmol/L (3.5-5.1); Sodium 131 mmol/L (136-145)
[2025-08-14] MEDS: Pantoprazole 40 MG DR.TAB PO SCH (10:05)
[2025-08-14] MEDS: Ketorolac Tromethamine 30 MG (1 mL) VIAL IVP PRN (10:08)
[2025-08-14 11:45] VITALS: BP 112/79; TEMP 97
[2025-08-14] MEDS: PNEUMOC 20-VAL CONJ-DIP CRM/PF 0.5 ML SYRINGE IM ONE (12:57)
== END 2025-08-14 17:54 | disposition home or self-care (01) ==
LOC: T4-B 22:29
PROVIDERS: ADMIT Family Medicine; ATTEND Family Medicine
DX: L73.2 Hidradenitis suppurativa (principal); F31.9 Bipolar disorder, unspecified; F20.9 Schizophrenia, unspecified; Z88.1 Allergy status to other antibiotic agents
CPT/HCPCS: 36415; 80053; 85025; 86141; 96374; 96376; G0378; J1885; J7512